=== PATIENT | male | born 1970 | race Hispanic/Latino ===

== ENCOUNTER 2018-07-01 15:55 | Inpatient (IN) | payer BC ==
[~2018-07-01] VITALS: Ht 175.3 cm; Wt 164.5 kg
--- OUTSIDE RECORDS SUMMARY | 2018-07-01 15:59 | XMS REPORT | Summary of Care ---
Author Author [facility] Organization [facility] Address Unknown Phone Unavailable Encounter ANABELL De Paz(CONSUELO) [id number] Date(s): 08/19/16 - 08/23/16 [facility] [address] [place] [address]- [phone] Final: Diverticulitis of intestine, part unspecified, without perforation or abs cess without bleeding Discharge Disposition: Home or Self Care Attending Physician: Delia Tierney MD Admitting Physician: Delia Tierney MD Vital Signs 1 2 3 Most recent to oldest [Reference Range]: 175.26 cm (08/20/16 4:33 AM) 175.26 cm (08/19/16 7:31 PM) Height 98.0 DegF (08/23/16 4:00 PM) 97.6 DegF (08/23/16 12:00 PM) 98.0 DegF (08/23/16 8:00 AM) Temperature Oral [96.4-99.1 DegF] 135/91 mmHg (08/23/16 4:00 PM) 136/89 mmHg (08/23/16 12:00 PM) 119/80 mmHg (08/23/16 8:00 AM) Blood Pressure [90-140/60-90 mmHg] 18 BRMIN (08/23/16 4:00 PM) 18 BRMIN (08/23/16 12:00 PM) 18 BRMIN (08/23/16 8:00 AM) Respiratory Rate [14-20 BRMIN] 69 bpm (08/23/16 4:00 PM) 50 bpm *LOW* (08/23/16 12:00 PM) 60 bpm (08/23/16 8:00 AM) Peripheral Pulse Rate [60-100 bpm] 159.091 kg (08/19/16 7:31 PM) Weight 51.79 m2 (08/19/16 7:31 PM) Body Mass Index Problem List Condition Effective Dates Status Health Status Informant Diverticulitis(Confi Resolved rmed) Allergies, Adverse Reactions, Alerts Substance Reaction Severity Status NKDA Active Medications amoxicillin 500 mg oral capsule 500 mg=1 cap, PO, TID, X 14 day, # 42 cap, 0 Refill(s) Start Date: 08/23/16 Stop Date: 09/06/16 Status: Ordered atropine 0.5 mg, 5 mL, Route: IVP, Drug form: INJ, ONCE, Dosing Weight 159.091, kg, PRN B radycardia, Start date: 08/20/16 6:27:00 CDT, symptomatic bradycardia HR <40 Start Date: 08/20/16 Stop Date: 08/23/16 Status: Discontinued dexamethasone (ANES) Route: IV, Drug form: INJ, ONCE, Stop date: 08/21/16 11:43:00 CDT Start Date: 08/21/16 Stop Date: 08/21/16 Status: Completed famotidine 20 mg, 2 mL, Route: IVP, Drug form: INJ, ONCE, Dosing Weight 159.091, kg, Priori ty: STAT, Start date: 08/19/16 19:40:00 CDT, Stop date: 08/19/16 19:40:00 CDT Notes: (Same as: Pepcid)Can be dilute in 5-10cc NS IVP: Slow IV push over at le ast 2 minutes. Start Date: 08/19/16 Stop Date: 08/19/16 Status: Completed fentaNYL (ANES) Route: IV, Drug form: INJ, ONCE, Stop date: 08/21/16 11:43:00 CDT Start Date: 08/21/16 Stop Date: 08/21/16 Status: Completed Flagyl 500 mg, 100 mL, Route: IVPB, Drug form: INJ, ABXQ6H, Dosing Weight 159.091, kg, Start date: 08/20/16 4:00:00 CDT, Duration: 30 day, Stop date: 09/18/16 22:00:00 CDT Notes: (Same as: Flagyl) Avoid alcohol. Start Date: 08/20/16 Stop Date: 08/20/16 Status: Discontinued Flagyl 500 mg, 1 tab, Route: PO, Drug form: TAB, ONCE, Dosing Weight 159.091, kg, Prior ity: STAT, Start date: 08/20/16 2:45:00 CDT, Stop date: 08/20/16 2:45:00 CDT Notes: (Same as: Flagyl) Take with food/ avoid alcohol Start Date: 08/20/16 Stop Date: 08/20/16 Status: Completed Flagyl 500 mg oral tablet 500 mg=1 tab, PO, Q8H, X 14 day, # 42 tab, 0 Refill(s) Start Date: 08/23/16 Stop Date: 09/06/16 Status: Ordered hydromorphone (ANES) Route: IV, Drug form: INJ, ONCE, Stop date: 08/21/16 11:43:00 CDT Start Date: 08/21/16 Stop Date: 08/21/16 Status: Completed Lactated Ringers Injection IV 1000 mL 1,000 mL, Rate: 25 ml/hr, Infuse over: 40 hr, Route: IV, Dosing Weight 159.091 k g, Total Volume: 1,000, Start date: 08/21/16 10:40:00 CDT, Duration: 30 day, Sto p date: 09/20/16 10:39:00 CDT Start Date: 08/21/16 Stop Date: 08/21/16 Status: Discontinued lidocaine (ANES) Route: IV, Drug form: INJ, ONCE, Stop date: 08/21/16 11:43:00 CDT Start Date: 08/21/16 Stop Date: 08/21/16 Status: Completed LR 1000 mL INJ (ANES) Route: IV, Total Volume: 1,000, Start date: 08/21/16 10:59:00 CDT, Stop date: 11:59:00 CDT Start Date: 08/21/16 Stop Date: 08/21/16 Status: Completed midazolam (ANES) Route: IV, Drug form: SOLN, ONCE, Stop date: 08/21/16 11:42:00 CDT Start Date: 08/21/16 Stop Date: 08/21/16 Status: Completed morphine Sulfate 4 mg, 1 mL, Route: IVP, Drug form: SOLN, ONCE, Dosing Weight 159.091, kg, Priori ty: STAT, Start date: 08/19/16 19:40:00 CDT, Stop date: 08/19/16 19:40:00 CDT Notes: (Same as:MORPhine Sulfate) Start Date: 08/19/16 Stop Date: 08/19/16 Status: Completed morphine Sulfate 4 mg, Route: IVP, ONCE, Dosing Weight 159.091, kg, Priority: STAT, Start date: 0 08/19/16 23:06:00 CDT, Stop date: 08/19/16 23:06:00 CDT Start Date: 08/19/16 Stop Date: 08/19/16 Status: Completed morphine Sulfate 4 mg, 1 mL, Route: IVP, Drug form: SOLN, Q4H, Dosing Weight 159.091, kg, PRN Lynette n Score 7-10, Start date: 08/20/16 3:26:00 CDT, Duration: 30 day, Stop date: 3:25:00 CDT Notes: (Same as:MORPhine Sulfate) Start Date: 08/20/16 Stop Date: 08/23/16 Status: Discontinued nitroglycerin 0.4 mg sublingual tablet 0.4 mg, 1 tab, Route: SL, Drug form: TAB, Q5Min, Dosing Weight 159.091, kg, PRN Chest Pain, Start date: 08/20/16 6:27:00 CDT, Duration: 30 day, Stop date: 09/19 6:26:00 CDT Notes: (Same as:Nitroquick, Nitrostat)"Do Not Crush" Sublingual tablet Start Date: 08/20/16 Stop Date: 08/23/16 Status: Discontinued ondansetron 4 mg, 2 mL, Route: IVP, Drug form: INJ, ONCE, Dosing Weight 159.091, kg, Priorit y: STAT, Start date: 08/19/16 19:40:00 CDT, Stop date: 08/19/16 19:40:00 CDT Notes: (Same as: Papito) MEDICATION WASTE Product Size: 4 mgProduct Was barbara: ___ mg Start Date: 08/19/16 Stop Date: 08/19/16 Status: Completed ondansetron 4 mg, 2 mL, Route: IVP, Drug form: INJ, Q6H, Dosing Weight 159.091, kg, PRN Naus ea & Vomiting, Start date: 08/20/16 3:26:00 CDT, Duration: 30 day, Stop date: 09/19/16 3:25:00 CDT Notes: (Same as: Papito) MEDICATION WASTE Product Size: 4 mgProduct Was barbara: ___ mg Start Date: 08/20/16 Stop Date: 08/23/16 Status: Discontinued ondansetron (ANES) Route: IV, Drug form: INJ, ONCE, Stop date: 08/21/16 11:43:00 CDT Start Date: 08/21/16 Stop Date: 08/21/16 Status: Completed potassium chloride 20 mEq oral tablet, extended release 40 mEq, 2 tab, Route: PO, Drug form: ERTAB, ONCE, Dosing Weight 159.091, kg, Sta rt date: 08/22/16 11:31:00 CDT, Stop date: 08/22/16 11:31:00 CDT Notes: (Same as: K-Dur 20)"Do Not Crush" With food and full glass of water Start Date: 08/22/16 Stop Date: 08/22/16 Status: Completed propofol (ANES) Route: IV, Drug form: INJ, ONCE, Stop date: 08/21/16 11:43:00 CDT Start Date: 08/21/16 Stop Date: 08/21/16 Status: Completed Protonix 40 mg, 1 tab, Route: PO, Drug form: ECTAB, Before Dinner, Dosing Weight 159.091, kg, Start date: 08/22/16 16:30:00 CDT, Duration: 30 day, Stop date: 09/20/16 16 :30:00 CDT Notes: Tablet should not be chewed or crushed.(Same as: Protonix) Start Date: 08/22/16 Stop Date: 08/23/16 Status: Discontinued Saline Flush 0.9% 10 mL, Route: IVP, Drug Form: INJ, Dosing Weight 159.091, kg, PRN, PRN Line Flus h, Start date: 08/19/16 19:40:00 CDT, Duration: 30 day, Stop date: 09/18/16 19:3 9:00 CDT Notes: preservative free. Start Date: 08/19/16 Stop Date: 08/20/16 Status: Discontinued Saline Flush 0.9% 10 ml, Route: IVP, Drug Form: INJ, Dosing Weight 159.091, kg, PRN, PRN Line Flus h, Start date: 08/20/16 3:26:00 CDT, Duration: 30 day, Stop date: 09/19/16 3:25: 00 CDT Notes: (Same as: BD Posiflush) Start Date: 08/20/16 Stop Date: 08/23/16 Status: Discontinued Sodium Chloride 0.9% (Bolus) IV 1,000 mL, 2,000 ml/hr, Infuse Over: 30 minutes, Route: IV, 1,000, Drug form: INJ , ONCE, Priority: STAT, Dosing Weight 159.091 kg, Start date: 08/19/16 19:40:00 CDT, Duration: 1 doses or times, Stop date: 08/19/16 19:40:00 CDT Start Date: 08/19/16 Stop Date: 08/19/16 Status: Completed sodium chloride 0.9% 1000 ml INJ 1,000 mL 1,000 mL, Rate: 125 ml/hr, Infuse over: 8 hr, Route: IV, Dosing Weight 159.091 k g, Total Volume: 1,000, Start date: 08/20/16 3:26:00 CDT, Duration: 30 day, Stop date: 09/19/16 3:25:00 CDT Start Date: 08/20/16 Stop Date: 08/22/16 Status: Discontinued tramadol 50 mg oral tablet 50 mg=1 tab, PO, Q6H, PRN Pain Score 4-6, X 3 day, # 12 tab, 0 Refill(s) Start Date: 08/23/16 Stop Date: 08/26/16 Status: Ordered tramadol 50 mg oral tablet 50 mg, 1 tab, Route: PO, Drug form: TAB, Q4H, Dosing Weight 159.091, kg, PRN Lynette n Score 4-6, Start date: 08/22/16 11:22:00 CDT, Duration: 30 day, Stop date: 11:21:00 CDT Notes: Not to exceed 400mg/day. (Same As: Ultram) Start Date: 08/22/16 Stop Date: 08/23/16 Status: Discontinued Tylenol 650 mg, 2 tab, Route: PO, Drug form: TAB, Q6H, Dosing Weight 159.091, kg, PRN Pa in 1-3/Temp > 100.4 F, Start date: 08/20/16 4:31:00 CDT, Duration: 30 day, Stop date: 09/19/16 4:30:00 CDT Notes: Do not exceed 4 gm/day. (Same as: Tylenol) Start Date: 08/20/16 Stop Date: 08/23/16 Status: Discontinued Tylenol with Codeine #3 oral tablet 1 tab, PO, Q4H, PRN Pain, # 42 tab, 0 Refill(s) Start Date: 08/20/16 Stop Date: 08/27/16 Status: Ordered vancomycin 125 mg, 2.5 mL, Route: PO, Drug form: SUSP, ABXQ6H, Dosing Weight 159.091, kg, S tart date: 08/20/16 4:00:00 CDT, Duration: 30 day, Stop date: 09/18/16 22:00:00 CDT Notes: TIME CRITICAL MEDICATION"DILUTE EACH DOSE WITH 30ML OF WATER OR APPLE/ORA NGE JUICE PRIOR TO ADMINISTRATION" Start Date: 08/20/16 Stop Date: 08/21/16 Status: Discontinued Vantin 200 mg oral tablet 200 mg=1 tab, PO, Q12H, X 14 day, # 28 tab, 0 Refill(s) Start Date: 08/23/16 Stop Date: 09/06/16 Status: Ordered Zofran 4 mg, Route: IVP, Drug form: INJ, ONCE, Dosing Weight 159.091, kg, Priority: STA T, Start date: 08/19/16 23:06:00 CDT, Stop date: 08/19/16 23:06:00 CDT Start Date: 08/19/16 Stop Date: 08/19/16 Status: Completed Zosyn 3.375 gm, Route: IVPB, ONCE, Dosing Weight 159.091, kg, Priority: STAT, Start da te: 08/19/16 23:06:00 CDT, Stop date: 08/19/16 23:06:00 CDT Start Date: 08/19/16 Stop Date: 08/19/16 Status: Completed Zosyn + sodium chloride 0.9% INJ 100 mL 3.375 gm, Route: IVPB, ABXQ8H, Dosing Weight 159.091, kg, CrCl >=20 ml/min infuse over 4 hours, Start date: 08/20/16 12:00:00 CDT, Duration: 30 day, Stop date: 09/19/16 4:00:00 CDT Notes: (Same as: Zosyn)Dosing based on Piperacillin component MEDICATION WA RAYMUNDO Product Size: 3375 mgProduct Wasted: ___ mg Start Date: 08/20/16 Stop Date: 08/23/16 Status: Discontinued Results ELECTROLYTES 1 2 3 Most recent to oldest [Reference Range]: 145 mEq/L (08/23/16 5:17 AM) 143 mEq/L (08/22/16 4:22 AM) 143 mEq/L (08/21/16 3:42 AM) Sodium Lvl [135-145 mEq/L] 3.7 mEq/L (08/23/16 5:17 AM) 3.3 mEq/L *LOW* (08/22/16 4:22 AM) 3.5 mEq/L (08/21/16 3:42 AM) Potassium Lvl [3.5-5.1 mEq/L] 108 mEq/L (08/23/16 5:17 AM) 108 mEq/L (08/22/16 4:22 AM) 106 mEq/L (08/21/16 3:42 AM) Chloride Lvl [95-109 mEq/L] 24 mEq/L (08/23/16 5:17 AM) 27 mEq/L (08/22/16 4:22 AM) 27 mEq/L (08/21/16 3:42 AM) CO2 [24-32 mEq/L] 16.7 mEq/L (08/23/16 5:17 AM) 11.3 mEq/L (08/22/16 4:22 AM) 13.5 mEq/L (08/21/16 3:42 AM) AGAP [10.0-20.0 mEq/L] CHEM PANEL 1 2 3 Most recent to oldest [Reference Range]: 0.82 mg/dL (08/23/16 5:17 AM) 0.71 mg/dL (08/22/16 4:22 AM) 0.80 mg/dL (08/21/16 3:42 AM) Creatinine Lvl [0.50-1.40 mg/dL] 106 mL/min/1.73m2 1 *NA* (08/23/16 5:17 AM) 113 mL/min/1.73m2 2 *NA* (08/22/16 4:22 AM) 107 mL/min/1.73m2 3 *NA* (08/21/16 3:42 AM) eGFR 11 mg/dL (08/23/16 5:17 AM) 11 mg/dL (08/22/16 4:22 AM) 10 mg/dL (08/21/16 3:42 AM) BUN [7-22 mg/dL] 12 (08/21/16 3:42 AM) 9 (08/19/16 7:50 PM) B/C Ratio [6-25] 126 mg/dL *HI* (08/23/16 5:17 AM) 155 mg/dL *HI* (08/22/16 4:22 AM) 89 mg/dL (08/21/16 3:42 AM) Glucose Lvl [70-99 mg/dL] 5.8 g/dL *LOW* (08/21/16 3:42 AM) 7.3 g/dL (08/19/16 7:50 PM) Total Protein [6.4-8.4 g/dL] 2.6 g/dL *LOW* (08/21/16 3:42 AM) 3.1 g/dL *LOW* (08/19/16 7:50 PM) Albumin Lvl [3.5-5.0 g/dL] 3.2 g/dL (08/21/16 3:42 AM) 4.2 g/dL (08/19/16 7:50 PM) Globulin [2.7-4.2 g/dL] 0.8 (08/21/16 3:42 AM) 0.7 (08/19/16 7:50 PM) A/G Ratio [0.7-1.6] 8.4 mg/dL *LOW* (08/23/16 5:17 AM) 8.7 mg/dL (08/22/16 4:22 AM) 7.9 mg/dL *LOW* (08/21/16 3:42 AM) Calcium Lvl [8.5-10.5 mg/dL] 3.9 mg/dL (08/23/16 5:17 AM) Phosphorus [2.5-4.5 mg/dL] 2.5 mg/dL *HI* (08/23/16 5:17 AM) 2.0 mg/dL (08/21/16 3:42 AM) 1.9 mg/dL (08/19/16 7:50 PM) Magnesium Lvl [1.8-2.4 mg/dL] 15 unit/L (08/21/16 3:42 AM) 18 unit/L (08/19/16 7:50 PM) ALT [0-65 unit/L] 13 unit/L (08/21/16 3:42 AM) 24 unit/L (08/19/16 7:50 PM) AST [0-37 unit/L] 71 unit/L (08/21/16 3:42 AM) 91 unit/L (08/19/16 7:50 PM) Alk Phos [39-136 unit/L] 1.2 mg/dL (08/21/16 3:42 AM) 0.3 mg/dL (08/19/16 7:50 PM) Bili Total [0.2-1.3 mg/dL] 199 unit/L (08/19/16 7:50 PM) Lipase Lvl [73-393 unit/L] 1.9 mMol/L (08/19/16 8:20 PM) Lactic Acid Lvl [0.5-2.2 mMol/L] 1Result Comment: The eGFR is calculated using the CKD-EPI formula. In most young, healthy individuals the eGFR will be >90 mL/min/1.73m2. The eGFR declines with age. An eGFR of 60-89 may be normal in some populations, particularly the elderly, for whom the CKD-EPI formula has not been extensively validated. Use of the eGFR is not recommended in the following populations: Individuals with unstable creatinine concentrations, including patients and those with serious co-morbid conditions. Patients with extremes in muscle mass or diet. The data above are obtained from the National Kidney Disease Education Program ( NKDEP) which additionally recommends that when the eGFR is used in patients with extremes of body mass index for purposes of drug dosing, the eGFR should be mul tiplied by the estimated BMI. 2Result Comment: The eGFR is calculated using the CKD-EPI formula. In most young, healthy individuals the eGFR will be >90 mL/min/1.73m2. The eGFR declines with age. An eGFR of 60-89 may be normal in some populations, particularly the elderly, for whom the CKD-EPI formula has not been extensively validated. Use of the eGFR is not recommended in the following populations: Individuals with unstable creatinine concentrations, including patients and those with serious co-morbid conditions. Patients with extremes in muscle mass or diet. The data above are obtained from the National Kidney Disease Education Program ( NKDEP) which additionally recommends that when the eGFR is used in patients with extremes of body mass index for purposes of drug dosing, the eGFR should be mul tiplied by the estimated BMI. 3Result Comment: The eGFR is calculated using the CKD-EPI formula. In most young, healthy individuals the eGFR will be >90 mL/min/1.73m2. The eGFR declines with age. An eGFR of 60-89 may be normal in some populations, particularly the elderly, for whom the CKD-EPI formula has not been extensively validated. Use of the eGFR is not recommended in the following populations: Individuals with unstable creatinine concentrations, including patients and those with serious co-morbid conditions. Patients with extremes in muscle mass or diet. The data above are obtained from the National Kidney Disease Education Program ( NKDEP) which additionally recommends that when the eGFR is used in patients with extremes of body mass index for purposes of drug dosing, the eGFR should be mul tiplied by the estimated BMI. URINE AND STOOL 1 2 3 Most recent to oldest [Reference Range]: Clear (08/19/16 8:41 PM) UA Turbidity [Clear] Ltyellow *NA* (08/19/16 8:41 PM) UA Color 6.0 (08/19/16 8:41 PM) UA pH [5.0-8.0] 1.010 (08/19/16 8:41 PM) UA Spec Grav [<=1.030] Negative mg/dL *NA* (08/19/16 8:41 PM) UA Glucose [Negative mg/dL] Large *ABN* (08/19/16 8:41 PM) UA Blood [Negative] Negative mg/dL *NA* (08/19/16 8:41 PM) UA Ketones [Negative mg/dL] Negative mg/dL (08/19/16 8:41 PM) UA Protein [Negative mg/dL] <=1.0 mg/dL *NA* (08/19/16 8:41 PM) UA Urobilinogen [0.1-1.0 mg/dL] Negative *NA* (08/19/16 8:41 PM) UA Bili [Negative] Small *ABN* (08/19/16 8:41 PM) UA Leuk Est [Negative] Negative (08/19/16 8:41 PM) UA Nitrite [Negative] 17 /HPF *HI* (08/19/16 8:41 PM) UA WBC [0-5 /HPF] 57 /HPF *HI* (08/19/16 8:41 PM) UA RBC [0-2 /HPF] Occasional /HPF *NA* (08/19/16 8:41 PM) UA Bacteria [None Seen /HPF] None Seen *NA* (08/19/16 8:41 PM) UA Sq Epi Occasional /HPF *NA* (08/19/16 8:41 PM) UA Amorph Natalie [None Seen /HPF] Few /LPF *NA* (08/19/16 8:41 PM) UA Mucus [None Seen /LPF] HEMATOLOGY 1 2 3 Most recent to oldest [Reference Range]: 13.6 K/CMM *HI* (08/23/16 5:17 AM) 15.8 K/CMM *HI* (08/22/16 4:22 AM) 13.7 K/CMM *HI* (08/21/16 3:42 AM) WBC [3.7-10.4 K/CMM] 4.36 M/CMM *LOW* (08/23/16 5:17 AM) 4.42 M/CMM *LOW* (08/22/16 4:22 AM) 3.95 M/CMM *LOW* (08/21/16 3:42 AM) RBC [4.70-6.10 M/CMM] 12.7 g/dL *LOW* (08/23/16 5:17 AM) 12.8 g/dL *LOW* (08/22/16 4:22 AM) 11.4 g/dL *LOW* (08/21/16 3:42 AM) Hgb [14.0-18.0 g/dL] 37.8 % *LOW* (08/23/16 5:17 AM) 38.8 % *LOW* (08/22/16 4:22 AM) 34.3 % *LOW* (08/21/16 3:42 AM) Hct [42.0-54.0 %] 86.8 fL (08/23/16:17 AM) 87.8 fL (08/22/16 4:22 AM) 86.7 fL (08/21/16 3:42 AM) MCV [80.0-94.0 fL] 29.1 pg (08/23/16:17 AM) 29.0 pg (08/22/16 4:22 AM) 28.9 pg (08/21/16 3:42 AM) MCH [27.0-31.0 pg] 33.5 g/dL (08/23/16:17 AM) 33.0 g/dL (08/22/16 4:22 AM) 33.3 g/dL (08/21/16 3:42 AM) MCHC [32.0-36.0 g/dL] 13.5 % (08/23/16 5:17 AM) 13.6 % (08/22/16 4:22 AM) 13.5 % (08/21/16 3:42 AM) RDW [11.5-14.5 %] 396 K/CMM (08/23/16:17 AM) 364 K/CMM (08/22/16 4:22 AM) 340 K/CMM (08/21/16 3:42 AM) Platelet [133-450 K/CMM] 8.0 fL (08/23/16:17 AM) 8.0 fL (08/22/16 4:22 AM) 7.8 fL (08/21/16 3:42 AM) MPV [7.4-10.4 fL] 69.4 % (08/23/16:17 AM) 85.8 % *HI* (08/22/16 4:22 AM) 73.6 % (08/21/16 3:42 AM) Segs [45.0-75.0 %] 23.5 % (08/23/16 5:17 AM) 8.7 % *LOW* (08/22/16 4:22 AM) 16.2 % *LOW* (08/21/16 3:42 AM) Lymphocytes [20.0-40.0 %] 5.8 % (08/23/16 5:17 AM) 5.1 % (08/22/16 4:22 AM) 7.6 % (08/21/16 3:42 AM) Monocytes [2.0-12.0 %] 0.4 % (08/23/16 5:17 AM) 2.1 % (08/21/16 3:42 AM) 2.2 % (08/19/16 7:50 PM) Eosinophils [0.0-4.0 %] 0.9 % (08/23/16 5:17 AM) 0.4 % (08/22/16 4:22 AM) 0.5 % (08/21/16 3:42 AM) Basophils [0.0-1.0 %] 9.4 K/CMM *HI* (08/23/16 5:17 AM) 13.6 K/CMM *HI* (08/22/16 4:22 AM) 10.1 K/CMM *HI* (08/21/16 3:42 AM) Segs-Bands # [1.5-8.1 K/CMM] 3.2 K/CMM (08/23/16 5:17 AM) 1.4 K/CMM (08/22/16 4:22 AM) 2.2 K/CMM (08/21/16 3:42 AM) Lymphocytes # [1.0-5.5 K/CMM] 0.8 K/CMM (08/23/16 5:17 AM) 0.8 K/CMM (08/22/16 4:22 AM) 1.0 K/CMM *HI* (08/21/16 3:42 AM) Monocytes # [0.0-0.8 K/CMM] 0.1 K/CMM (08/23/16 5:17 AM) 0.3 K/CMM (08/21/16 3:42 AM) 0.4 K/CMM (08/19/16 7:50 PM) Eosinophils # [0.0-0.5 K/CMM] 0.1 K/CMM (08/23/16 5:17 AM) 0.1 K/CMM (08/22/16 4:22 AM) 0.1 K/CMM (08/21/16 3:42 AM) Basophils # [0.0-0.2 K/CMM] Immunizations No data available for this section Procedures No data available for this section Social History Social History Type Response Alcohol Current, Type Beer, Liquor. Smoking Status Current some day smoker; Type: Cigarettes; Exposure to Tobacco Smoke None; Cigarette Smoking Last 365 Days No; Reg Smoking Cessation Counseling No Assessment and Plan Extracted from: Title: [facility] Hospitalist Progress Author: Delia Tierney MD Date: 08/23/16 Note * Impression and Plan 45-year-old male, apparently he was diagnosed with acute diverticulitis, recently sent home on oral Cipro and Flagyl and symptoms persisted. ASSESSMENT Diverticulitis failed outpatient treatment UTI Prostatitis Leukocytosis 2/2 above Hypokalemia GERD PLAN: stopped Vanco continue Zosyn ID consult appreciated PRN Pain Meds Full Liquid Diet; advance as tolerated PPI Daily DVt PPx: SCDs Dispo: d/c today on Vantin/Amox/Flagyl Extracted from: Title: Urology Consult Author: Rashid Watson Date: 08/20/16 Patient: TERELL DUBON Age: 45 years Sex: Male : 1970 Associated Diagnoses: None Author: Rashid Watson MD Urology Consult Note Thank you for including us in this patient's care. Reason for Consult: Bladder thickening Basic Information Source of history: Self. Present at bedside: Medical personnel. History limitation: None. Chief Complaint 08/19/2016 19:31 Pt reports burnful urination, lower abdominal pain, and fever that started two weeks ago. Pt was admitted for diverticulitis. Pt states that the pain never went away. History of Present Illness 45 year old male with history of diverticulitis and chronic smoking who arrived to ED complaining of LLQ abdominal pain, dysuria and fevers. He states that he has noticed painful urination and urinary frequency for the last 4-5 days, developed fevers along with LLQ pain for which he came to ED. Prior to this he states that he had no voiding symptoms. He has history of kidney stones. No Family history of malignancies. Ct scan revealed thickened left bladder wall for which urology was consulted. UA significant for microscopic hematuria. Review of Systems CONSTITUTIONAL: Denies fever or chills, weight loss, fatigue. HEENT: Denies hearing loss, visual changes. CARDIOVASCULAR: Denies chest pain, palpitations. RESPIRATORY: Denies shortness of breath, cough. GASTROINTESTINAL: abdominal pain per HPI., denies diarrhea, constipation. no nausea, vomiting GENITOURINARY: As per HPI. MUSCULOSKELETAL: Denies joint pain, joint effusions, decreased range of motion SKIN: Denies recent rashes, lesions. NEUROLOGICAL: Denies seizures, numbness, tingling. ENDOCRINE: Denies excessive thirst, temperature intolerance. Health Status Allergies: Allergic Reactions (All) Severity Not Documented NKDA- No reactions were documented., Allergies (1) ActiveReaction NKDANone Documented Current medications: (Selected) Inpatient Medications Ordered Saline Flush 0.9%: 10 ml, IVP, PRN, PRN: Line Flush Tylenol: 650 mg, 2 tab, PO, Q6H, PRN: Pain 1-3/Temp > 100.4 F Zosyn + sodium chloride 0.9% INJ 100 mL: 3.375 gm, 25 ml/hr, IVPB, ABXQ8H atropine: 0.5 mg, 5 mL, IVP, ONCE, PRN: Bradycardia morphine Sulfate: 4 mg, 1 mL, IVP, Q4H, PRN: Pain Score 7-10 nitroglycerin 0.4 mg sublingual tablet: 0.4 mg, 1 tab, SL, Q5Min, PRN: Chest Pain ondansetron: 4 mg, 2 mL, IVP, Q6H, PRN: Nausea & Vomiting sodium chloride 0.9% 1000 ml INJ 1,000 mL: 125 ml/hr, IV, Stop: 09/19/16 3:25:00 CDT vancomycin: 125 mg, 2.5 mL, PO, ABXQ6H Documented Medications Documented Tylenol with Codeine #3 oral tablet: 1 tab, PO, Q4H, for 7 day, PRN: Pain, 42 tab, 0 Refill(s) Problem list: No qualifying data available Histories Past Medical History: Resolved Diverticulitis ([id number]): Resolved. Family History: Hypertension Mother Type 2 diabetes mellitus Father Procedure history: No active procedure history items have been selected or recorded. Social History Social & Psychosocial Habits Alcohol 08/03/2016 Use: Current Type: Beer, Liquor Tobacco 08/19/2016 Use: Current some day smoker Type: Cigarettes Exposure to Tobacco Smoke None Cigarette Smoking Last 365 Days No Reg Smoking Cessation Counseling No . Physical Examination VS/Measurements Vital Signs (last 24 hrs) Last Charted Temp Oral98.2 DegF (AUG 20:) Heart Rate Iulkxitkxq60 bpm (AUG 20:) Resp Rate 20 BRMIN (AUG 20:) PFW157 mmHg (AUG 20:) DBP70 mmHg (AUG 20 15:) QoJ758 % (AUG 20 11:26) Onzgxt960.09 kg (AUG 19 19:31) Qgucgb716.26 cm (AUG 20 04:33) BMI51.79 (AUG 19 19:31) General: Alert and oriented, No acute distress. Eye: Normal conjunctiva, Vision unchanged. HENT: Normal hearing, Oral mucosa is moist. Neck: Supple, Non-tender. Respiratory: Respirations are non-labored, Symmetrical chest wall expansion. No tactile fremitus Cardiovascular: Normal rate, Regular rhythm. No extremity edema, palpable peripheral pulses Gastrointestinal: Soft, tender at LLQ, no palpable hernias Genitourinary: No costovertebral angle tenderness. Musculoskeletal Normal range of motion. Normal strength, gait, and station. No clubbing/cyanosis/edema Integumentary: Warm, [place]. Neurologic: Alert, Oriented. Cognition and Speech: Oriented, Speech clear and coherent. Review / Management Results review: Labs (Last four charted values) WBC H 18.8(AUG 19) Hgb L 13.0(AUG 19) Hct L 39.1(AUG 19) Plt 429(AUG 19) Na 141(AUG 19) K L 3.4(AUG 19) CO2 26(AUG 19) Cl 106(AUG 19) Cr 0.96(AUG 19) BUN 9(AUG 19) Glucose Random H 127(AUG 19) Mg 1.9(AUG 19) Ca 8.5(AUG 19). Impression and Plan 45 year old male with findings suggestive of acute diverticulitis, possible UTI, possible bladder mass, possible colovesical fistula?. -- NPO after midnight. -- Will schedule for cystoscopy, possible bladder biopsy and fulguration tomorrow am. -- Antibiotics per primary team. Follow up on cultures. Case was evaluated and discussed with attending physician, Dr. Adorno. Addendum Patient seen and examined, agree with H&P, plan as per Dr. Contreras by -Worsening bladder thickening on CT, concern for colovesical fistula - to OR for Kyree, cystoscopy, possible bladder biopsy, cystogram. UA without nitrites, small LEs, on Shree Mancini/Michelle DUMONT on -Microhematuria - cystoscopy to evaluate 08/21/2016 I personally reveiwed the patient's labs and imaging reports, looked at the images 10:55 themselves, and contacted the consulting physician to discuss the above plan. Shree Adorno MD [facility] Office: [phone]
--- OUTSIDE RECORDS SUMMARY | 2018-07-01 15:59 | XMS REPORT | Continuity of Care Document ---
Author Author [facility] Interface Address Unknown Phone Unavailable Problems Problem Status Onset Date Classification Date Reported Comments Source ABD PAIN Active 08/19/2016 [facility] DIVERTICULITIS, CLOSTRIDIUM DIFIFICILE C Active 08/19/2016 [facility] DIVERTICULITIS Active 08/02/2016 [facility] Diverticulitis Resolved Problem 08/26/2016 [facility] Final: Diverticulitis of intestine, part unspecified, without perforation or abscess without bleeding 08/26/2016 [facility] DVTRCLI OF INTEST, PART UNSP, W/O PERF O Active [facility] ENTEROCOLITIS DUE TO CLOSTRIDIUM DIFFICI Active [facility] Medications Medication Details Route Status Patient Instructions Ordering Provider Order Date Source tramadol hydrochloride 50 MG Oral Tablet 50 mg=1 tab, PO, Q6H, PRN Pain Score 4-6, X 3 day, # 12 tab, 0 Refill(s) Active 08/23/2016 [facility] Metronidazole 500 MG Oral Tablet [Flagyl] 500 mg=1 tab, PO, Q8H, X 14 day, # 42 tab, 0 Refill(s) Active 08/23/2016 [facility] amoxicillin 500 mg oral capsule 500 mg=1 cap, PO, TID, X 14 day, # 42 cap, 0 Refill(s) Active 08/23/2016 [facility] cefpodoxime 200 MG Oral Tablet [Vantin] 200 mg=1 tab, PO, Q12H, X 14 day, # 28 tab, 0 Refill(s) Active 08/23/2016 [facility] Protonix 40 mg, 1 tab, Route: PO, Drug form: ECTAB, Before Dinner, Dosing Weight 159.091, kg, Start date: 08/22/16 16:30:00 CDT, Duration: 30 day, Stop date: 09/20/16 16:30:00 CDTNotes: Tablet should not be chewed or crushed. (Same as: Protonix) No Longer Active 08/22/2016 [facility] potassium chloride 20 mEq oral tablet, extended release 40 mEq, 2 tab, Route: PO, Drug form: ERTAB, ONCE, Dosing Weight 159.091, kg, Start date: 08/22/16 11:31:00 CDT, Stop date: 08/22/16 11:31:00 CDTNotes: (Same as: K-Dur 20) "Do Not Crush" With food and full glass of water Inactive 08/22/2016 [facility] tramadol hydrochloride 50 MG Oral Tablet 50 mg, 1 tab, Route: PO, Drug form: TAB, Q4H, Dosing Weight 159.091, kg, PRN Pain Score 4-6, Start date: 08/22/16 11:22:00 CDT, Duration: 30 day, Stop date: 09/21/16 11:21:00 CDTNotes: Not to exceed 400mg/day. (Same As: Ultram) No Longer Active 08/22/2016 [facility] hydromorphone (ANES) Route: IV, Drug form: INJ, ONCE, Stop date: 08/21/16 11:43:00 CDT Inactive 08/21/2016 [facility] propofol (ANES) Route: IV, Drug form: INJ, ONCE, Stop date: 08/21/16 11:43:00 CDT Inactive 08/21/2016 [facility] fentaNYL (ANES) Route: IV, Drug form: INJ, ONCE, Stop date: 08/21/16 11:43:00 CDT Inactive 08/21/2016 [facility] ondansetron (ANES) Route: IV, Drug form: INJ, ONCE, Stop date: 08/21/16 11:43:00 CDT Inactive 08/21/2016 [facility] lidocaine (ANES) Route: IV, Drug form: INJ, ONCE, Stop date: 08/21/16 11:43:00 CDT Inactive 08/21/2016 [facility] dexamethasone (ANES) Route: IV, Drug form: INJ, ONCE, Stop date: 08/21/16 11:43:00 CDT Inactive 08/21/2016 [facility] midazolam (ANES) Route: IV, Drug form: SOLN, ONCE, Stop date: 08/21/16 11:42:00 CDT Inactive 08/21/2016 [facility] LR 1000 mL INJ (ANES) Route: IV, Total Volume: 1,000, Start date: 08/21/16 10:59:00 CDT, Stop date: 08/21/16 11:59:00 CDT Inactive 08/21/2016 [facility] Lactated Ringers Injection IV 1000 mL 1,000 mL, Rate: 25 ml/hr, Infuse over: 40 hr, Route: IV, Dosing Weight 159.091 kg, Total Volume: 1,000, Start date: 08/21/16 10:40:00 CDT, Duration: 30 day, Stop date: 09/20/16 10:39:00 CDT Inactive 08/21/2016 [facility] Zosyn 3.375 gm, Route: IVPB, ABXQ8H, Dosing Weight 159.091, kg, CrCl >=20 ml/min infuse over 4 hours, Start date: 08/20/16 12:00:00 CDT, Duration: 30 day, Stop date: 09/19/16 4:00:00 CDTNotes: (Same as: Zosyn) Dosing based on Piperacillin component MEDICATION WASTE Product Size: 3375 mg Product Wasted: ___ mg No Longer Active 08/20/2016 [facility] Nitroglycerin 0.4 MG Sublingual Tablet 0.4 mg, 1 tab, Route: SL, Drug form: TAB, Q5Min, Dosing Weight 159.091, kg, PRN Chest Pain, Start date: 08/20/16 6:27:00 CDT, Duration: 30 day, Stop date: 09/19/16 6:26:00 CDTNotes: (Same as:Nitroquick, Nitrostat) "Do Not Crush" Sublingual tablet No Longer Active 08/20/2016 [facility] Atropine 0.5 mg, 5 mL, Route: IVP, Drug form: INJ, ONCE, Dosing Weight 159.091, kg, PRN Bradycardia, Start date: 08/20/16 6:27:00 CDT, symptomatic bradycardia HR No Longer Active 08/20/2016 [facility] Acetaminophen 300 MG / Codeine Phosphate 30 MG Oral Tablet [Tylenol with Codeine #3] 1 tab, PO, Q4H, PRN Pain, # 42 tab, 0 Refill(s) Active 08/20/2016 [facility] Tylenol 650 mg, 2 tab, Route: PO, Drug form: TAB, Q6H, Dosing Weight 159.091, kg, PRN Pain 1-3/Temp > 100.4 F, Start date: 08/20/16 4:31:00 CDT, Duration: 30 day, Stop date: 09/19/16 4:30:00 CDTNotes: Do not exceed 4 gm/day. (Same as: Tylenol) No Longer Active 08/20/2016 [facility] Flagyl 500 mg, 100 mL, Route: IVPB, Drug form: INJ, ABXQ6H, Dosing Weight 159.091, kg, Start date: 08/20/16 4:00:00 CDT, Duration: 30 day, Stop date: 09/18/16 22:00:00 CDTNotes: (Same as: Flagyl) Avoid alcohol. Inactive 08/20/2016 [facility] Vancomycin 125 mg, 2.5 mL, Route: PO, Drug form: SUSP, ABXQ6H, Dosing Weight 159.091, kg, Start date: 08/20/16 4:00:00 CDT, Duration: 30 day, Stop date: 09/18/16 22:00:00 CDTNotes: TIME CRITICAL MEDICATION "DILUTE EACH DOSE WITH 30ML OF WATER OR APPLE/ORANGE JUICE PRIOR TO ADMINISTRATION" No Longer Active 08/20/2016 [facility] Saline Flush 0.9% 10 ml, Route: IVP, Drug Form: INJ, Dosing Weight 159.091, kg, PRN, PRN Line Flush, Start date: 08/20/16 3:26:00 CDT, Duration: 30 day, Stop date: 09/19/16 3:25:00 CDTNotes: (Same as: BD Posiflush) No Longer Active 08/20/2016 [facility] Sodium Chloride 0.154 MEQ/ML Injectable Solution 1,000 mL, Rate: 125 ml/hr, Infuse over: 8 hr, Route: IV, Dosing Weight 159.091 kg, Total Volume: 1,000, Start date: 08/20/16 3:26:00 CDT, Duration: 30 day, Stop date: 09/19/16 3:25:00 CDT No Longer Active 08/20/2016 [facility] Ondansetron 4 mg, 2 mL, Route: IVP, Drug form: INJ, Q6H, Dosing Weight 159.091, kg, PRN Nausea & Vomiting, Start date: 08/20/16 3:26:00 CDT, Duration: 30 day, Stop date: 09/19/16 3:25:00 CDTNotes: (Same as: Zofran) MEDICATION WASTE Product Size: 4 mg Product Wasted: ___ mg No Longer Active 08/20/2016 [facility] Morphine 4 mg, 1 mL, Route: IVP, Drug form: SOLN, Q4H, Dosing Weight 159.091, kg, PRN Pain Score 7-10, Start date: 08/20/16 3:26:00 CDT, Duration: 30 day, Stop date: 09/19/16 3:25:00 CDTNotes: (Same as:MORPhine Sulfate) No Longer Active 08/20/2016 [facility] Flagyl 500 mg, 1 tab, Route: PO, Drug form: TAB, ONCE, Dosing Weight 159.091, kg, Priority: STAT, Start date: 08/20/16 2:45:00 CDT, Stop date: 08/20/16 2:45:00 CDTNotes: (Same as: Flagyl) Take with food/ avoid alcohol Inactive 08/20/2016 [facility] Zosyn 3.375 gm, Route: IVPB, ONCE, Dosing Weight 159.091, kg, Priority: STAT, Start date: 08/19/16 23:06:00 CDT, Stop date: 08/19/16 23:06:00 CDT Inactive 08/20/2016 [facility] Zofran 4 mg, Route: IVP, Drug form: INJ, ONCE, Dosing Weight 159.091, kg, Priority: STAT, Start date: 08/19/16 23:06:00 CDT, Stop date: 08/19/16 23:06:00 CDT Inactive 08/20/2016 [facility] Morphine 4 mg, Route: IVP, ONCE, Dosing Weight 159.091, kg, Priority: STAT, Start date: 08/19/16 23:06:00 CDT, Stop date: 08/19/16 23:06:00 CDT Inactive 08/20/2016 [facility] Ondansetron 4 mg, 2 mL, Route: IVP, Drug form: INJ, ONCE, Dosing Weight 159.091, kg, Priority: STAT, Start date: 08/19/16 19:40:00 CDT, Stop date: 08/19/16 19:40:00 CDTNotes: (Same as: Papito) MEDICATION WASTE Product Size: 4 mg Product Wasted: ___ mg Inactive 08/20/2016 [facility] Morphine 4 mg, 1 mL, Route: IVP, Drug form: SOLN, ONCE, Dosing Weight 159.091, kg, Priority: STAT, Start date: 08/19/16 19:40:00 CDT, Stop date: 08/19/16 19:40:00 CDTNotes: (Same as:MORPhine Sulfate) Inactive 08/20/2016 [facility] Famotidine 20 mg, 2 mL, Route: IVP, Drug form: INJ, ONCE, Dosing Weight 159.091, kg, Priority: STAT, Start date: 08/19/16 19:40:00 CDT, Stop date: 08/19/16 19:40:00 CDTNotes: (Same as: Pepcid) Can be dilute in 5-10cc NS IVP: Slow IV push over at least 2 minutes. Inactive 08/20/2016 [facility] Sodium Chloride 0.154 MEQ/ML Injectable Solution 1,000 mL, 2,000 ml/hr, Infuse Over: 30 minutes, Route: IV, 1,000, Drug form: INJ, ONCE, Priority: STAT, Dosing Weight 159.091 kg, Start date: 08/19/16 19:40:00 CDT, Duration: 1 doses or times, Stop date: 08/19/16 19:40:00 CDT Inactive 08/20/2016 [facility] Saline Flush 0.9% 10 mL, Route: IVP, Drug Form: INJ, Dosing Weight 159.091, kg, PRN, PRN Line Flush, Start date: 08/19/16 19:40:00 CDT, Duration: 30 day, Stop date: 09/18/16 19:39:00 CDTNotes: preservative free. No Longer Active 08/20/2016 [facility] Acetaminophen 300 MG / Codeine Phosphate 30 MG Oral Tablet [Tylenol with Codeine #3] 1 - 2 tab, PO, Q4H, PRN Pain, X 4 day, # 36 tab, 0 Refill(s) Active 08/06/2016 [facility] Metronidazole 500 MG Oral Tablet 500 mg=1 tab, PO, ABXQ8H, X 10 day, # 30 tab, 0 Refill(s) Active 08/06/2016 [facility] ciprofloxacin 500 mg oral tablet 500 mg=1 tab, PO, [id number], X 10 day, # 20 tab, 0 Refill(s) Active 08/06/2016 [facility] Flagyl 500 mg, 1 tab, Route: PO, Drug form: TAB, ABXQ8H, Dosing Weight 161.364, kg, Start date: 08/04/16 8:00:00 PHOTO LAB MANAGER, Duration: 30 day, Stop date: 09/03/16 0:00:00 CDTNotes: (Same as: Flagyl) Take with food/ avoid alcohol No Longer Active 08/04/2016 [facility] Ciprofloxacin 500 mg, 1 tab, Route: PO, Drug form: TAB, [id number], Dosing Weight 161.364, kg, Start date: 08/04/16 8:00:00 PHOTO LAB MANAGER, Duration: 30 day, Stop date: 09/02/16 20:00:00 CDTNotes: May interfere w/enteral feedings - Take 1 hr before or 2 hrs after antacids, dairy pdt & minerals. On empty stomach. No Longer Active 08/04/2016 [facility] Nitroglycerin 0.4 MG Sublingual Tablet 0.4 mg, 1 tab, Route: SL, Drug form: TAB, Q5Min, Dosing Weight 161.364, kg, PRN as needed for chest pain, Repeat Q5 minutes for total of 3 doses, Start date: 08/03/16 5:00:00 PHOTO LAB MANAGER, Duration: 30 day, Stop date: 09/02/16 5:59:00 CDTNotes: (Same as:Nitroquick, Nitrostat) "Do Not Crush" Sublingual tablet No Longer Active 08/03/2016 [facility] Atropine 0.5 mg, 5 mL, Route: IVP, Drug form: INJ, ONCE, Dosing Weight 161.364, kg, PRN Other -See Comment, symptomatic bradycardia; HR less than 40/minute, Start date: 08/03/16 5:00:00 PHOTO LAB MANAGER No Longer Active 08/03/2016 [facility] Zosyn 3.375 gm, Route: IVPB, ABXQ8H, Dosing Weight 162.273, kg, CrCl >=20 ml/min infuse over 4 hours, Start date: 08/02/16 23:00:00 PHOTO LAB MANAGER, Duration: 30 day, Stop date: 09/01/16 16:00:00 CDTNotes: (Same as: Zosyn) Dosing based on Piperacillin component MEDICATION WASTE Product Size: 3375 mg Product Wasted: ___ mg No Longer Active 08/03/2016 [facility] Saline Flush 0.9% 10 ml, Route: IVP, Drug Form: INJ, Dosing Weight 162.273, kg, PRN, PRN Line Flush, Start date: 08/02/16 22:51:00 PHOTO LAB MANAGER, Duration: 30 day, Stop date: 09/01/16 23:50:00 CDTNotes: (Same as: BD Posiflush) No Longer Active 08/03/2016 [facility] Sodium Chloride 0.154 MEQ/ML Injectable Solution 1,000 mL, Rate: 125 ml/hr, Infuse over: 8 hr, Route: IV, Dosing Weight 162.273 kg, Total Volume: 1,000, Start date: 08/02/16 22:51:00 PHOTO LAB MANAGER, Duration: 30 day, Stop date: 09/01/16 22:50:00 CDT No Longer Active 08/03/2016 [facility] Morphine 2 mg, 1 mL, Route: IVP, Drug form: INJ, Q4H, Dosing Weight 162.273, kg, PRN Pain Score 7-10, Start date: 08/02/16 22:51:00 PHOTO LAB MANAGER, Duration: 30 day, Stop date: 09/01/16 22:50:00 CDTNotes: (Same as:MORPhine Sulfate) No Longer Active 08/03/2016 [facility] Acetaminophen 325 MG / Hydrocodone Bitartrate 5 MG Oral Tablet 2 tab, Route: PO, Drug Form: TAB, Dosing Weight 162.273, kg, Q4H, PRN Pain Score 7-10, Start date: 08/02/16 22:51:00 PHOTO LAB MANAGER, Duration: 30 day, Stop date: 09/01/16 22:50:00 CDTNotes: (Same as: Mcdowell 325/5) Do not exceed 4gm/day of acetaminophen. No Longer Active 08/03/2016 [facility] Ondansetron 4 mg, 2 mL, Route: IVP, Drug form: INJ, Q6H, Dosing Weight 162.273, kg, PRN Nausea & Vomiting, Start date: 08/02/16 22:51:00 PHOTO LAB MANAGER, Duration: 30 day, Stop date: 09/01/16 22:50:00 CDTNotes: (Same as: Zofran) MEDICATION WASTE Product Size: 4 mg Product Wasted: ___ mg No Longer Active 08/03/2016 [facility] Flagyl 500 mg, 100 mL, Route: IVPB, Drug form: INJ, ONCE, Dosing Weight 162.273, kg, Priority: STAT, Start date: 08/02/16 22:38:00 PHOTO LAB MANAGER, Stop date: 08/02/16 22:38:00 CSTNotes: (Same as: Flagyl) Avoid alcohol. Inactive 08/03/2016 [facility] Cipro 400 mg, 200 mL, Route: IVPB, Drug form: INJ, ONCE, Dosing Weight 162.273, kg, Priority: STAT, Start date: 08/02/16 22:38:00 PHOTO LAB MANAGER, Stop date: 08/02/16 22:38:00 CSTNotes: Do not refrigerate Inactive 08/03/2016 [facility] Morphine 4 mg, 1 mL, Route: IVP, Drug form: SOLN, ONCE, Dosing Weight 162.273, kg, Priority: STAT, Start date: 08/02/16 20:38:00 PHOTO LAB MANAGER, Stop date: 08/02/16 20:38:00 CSTNotes: (Same as:MORPhine Sulfate) Inactive 08/03/2016 [facility] Zofran 4 mg, 2 mL, Route: IVP, Drug form: INJ, ONCE, Dosing Weight 162.273, kg, Priority: STAT, Start date: 08/02/16 19:34:00 PHOTO LAB MANAGER, Stop date: 08/02/16 19:34:00 CSTNotes: (Same as: Zofran) MEDICATION WASTE Product Size: 4 mg Product Wasted: ___ mg Inactive 08/03/2016 [facility] Morphine 4 mg, 1 mL, Route: IVP, Drug form: SOLN, ONCE, Dosing Weight 162.273, kg, Priority: STAT, Start date: 08/02/16 19:33:00 PHOTO LAB MANAGER, Stop date: 08/02/16 19:33:00 CSTNotes: (Same as:MORPhine Sulfate) Inactive 08/03/2016 [facility] Sodium Chloride 0.154 MEQ/ML Injectable Solution 1,000 mL, 1,000 ml/hr, Infuse Over: 1 hr, Route: IV, 1,000, Drug form: INJ, ONCE, Priority: STAT, Dosing Weight 162.273 kg, Start date: 08/02/16 19:33:00 PHOTO LAB MANAGER, Duration: 1 doses or times, Stop date: 08/02/16 19:33:00 PHOTO LAB MANAGER Inactive 08/03/2016 [facility] Saline Flush 0.9% 10 mL, Route: IVP, Drug Form: INJ, Dosing Weight 162.273, kg, PRN, PRN Line Flush, Start date: 08/02/16 17:28:00 PHOTO LAB MANAGER, Duration: 30 day, Stop date: 09/01/16 18:27:00 CDTNotes: (Same as: BD Posiflush) No Longer Active 08/02/2016 [facility] Allergies, Adverse Reactions, Alerts Substance Category Reaction Severity Reaction type Status Date Reported Comments Source Immunizations Immunization Date Given Site Status Last Updated Comments Source Results Order Name Results Value Reference Range Date Interpretation Comments Source CHEM PANEL eGFR 106 mL/min/1.73m2 08/23/2016 Result Comment: The eGFR is calculated using the [...] from the National Kidney Disease Education Program (NKDEP) which additionally recommends that when the eGFR is used in patients with extremes of body mass index for purposes of drug dosing, the eGFR should be multiplied by the estimated BMI. [facility] CHEM PANEL Calcium Lvl 8.4 mg/dL 8.5 - 10.5 08/23/2016 [facility] CHEM PANEL Chloride Lvl 108 meq/L 95 - 109 08/23/2016 [facility] CHEM PANEL CO2 24 meq/L 24 - 32 08/23/2016 [facility] CHEM PANEL Creatinine Lvl 0.82 mg/dL 0.50 - 1.40 08/23/2016 [facility] CHEM PANEL Sodium Lvl 145 meq/L 135 - 145 08/23/2016 [facility] CHEM PANEL Potassium Lvl 3.7 meq/L 3.5 - 5.1 08/23/2016 [facility] CHEM PANEL Glucose Lvl 126 mg/dL 70 - 99 08/23/2016 [facility] CHEM PANEL BUN 11 mg/dL 7 - 22 08/23/2016 [facility] CHEM PANEL AGAP 16.7 meq/L 10.0 - 20.0 08/23/2016 [facility] CHEM PANEL Magnesium Lvl 2.5 mg/dL 1.8 - 2.4 08/23/2016 [facility] CHEM PANEL Phosphorus 3.9 mg/dL 2.5 - 4.5 08/23/2016 [facility] HEMATOLOGY Monocytes # 0.8 K/CMM 0.0 - 0.8 08/23/2016 [facility] HEMATOLOGY Eosinophils # 0.1 K/CMM 0.0 - 0.5 08/23/2016 [facility] HEMATOLOGY Basophils # 0.1 K/CMM 0.0 - 0.2 08/23/2016 [facility] HEMATOLOGY Segs 69.4 % 45.0 - 75.0 08/23/2016 [facility] HEMATOLOGY Lymphocytes 23.5 % 20.0 - 40.0 08/23/2016 [facility] HEMATOLOGY Segs-Bands # 9.4 K/CMM 1.5 - 8.1 08/23/2016 [facility] HEMATOLOGY Basophils 0.9 % 0.0 - 1.0 08/23/2016 [facility] HEMATOLOGY Eosinophils 0.4 % 0.0 - 4.0 08/23/2016 [facility] HEMATOLOGY Monocytes 5.8 % 2.0 - 12.0 08/23/2016 [facility] HEMATOLOGY Lymphocytes # 3.2 K/CMM 1.0 - 5.5 08/23/2016 [facility] HEMATOLOGY Hgb 12.7 g/dL 14.0 - 18.0 08/23/2016 [facility] HEMATOLOGY MCH 29.1 pg 27.0 - 31.0 08/23/2016 [facility] HEMATOLOGY Hct 37.8 % 42.0 - 54.0 08/23/2016 [facility] HEMATOLOGY MCV 86.8 fL 80.0 - 94.0 08/23/2016 [facility] HEMATOLOGY RBC 4.36 M/CMM 4.70 - 6.10 08/23/2016 [facility] WBC 13.6 K/CMM 3.7 - 10.4 08/23/2016 [facility] HEMATOLOGY Platelet 396 K/CMM 133 - 450 08/23/2016 [facility] RDW 13.5 % 11.5 - 14.5 08/23/2016 [facility] MCHC 33.5 g/dL 32.0 - 36.0 08/23/2016 [facility] HEMATOLOGY MPV 8.0 fL 7.4 - 10.4 08/23/2016 [facility] ELECTROLYTES AGAP 11.3 meq/L 10.0 - 20.0 08/22/2016 [facility] ELECTROLYTES Creatinine Lvl 0.71 mg/dL 0.50 - 1.40 08/22/2016 [facility] ELECTROLYTES Sodium Lvl 143 meq/L 135 - 145 08/22/2016 [facility] ELECTROLYTES Glucose Lvl 155 mg/dL 70 - 99 08/22/2016 [facility] ELECTROLYTES BUN 11 mg/dL 7 - 22 08/22/2016 [facility] ELECTROLYTES Potassium Lvl 3.3 meq/L 3.5 - 5.1 08/22/2016 [facility] ELECTROLYTES Calcium Lvl 8.7 mg/dL 8.5 - 10.5 08/22/2016 [facility] ELECTROLYTES Chloride Lvl 108 meq/L 95 - 109 08/22/2016 [facility] ELECTROLYTES CO2 27 meq/L 24 - 32 08/22/2016 [facility] ELECTROLYTES eGFR 113 mL/min/1.73m2 08/22/2016 Result Comment: The eGFR is calculated using the [...] from the National Kidney Disease Education Program (NKDEP) which additionally recommends that when the eGFR is used in patients with extremes of body mass index for purposes of drug dosing, the eGFR should be multiplied by the estimated BMI. [facility] WBC 15.8 K/CMM 3.7 - 10.4 08/22/2016 [facility] HEMATOLOGY Platelet 364 K/CMM 133 - 450 08/22/2016 [facility] HEMATOLOGY MPV 8.0 fL 7.4 - 10.4 08/22/2016 [facility] MCHC 33.0 g/dL 32.0 - 36.0 08/22/2016 [facility] HEMATOLOGY RDW 13.6 % 11.5 - 14.5 08/22/2016 [facility] HEMATOLOGY RBC 4.42 M/CMM 4.70 - 6.10 08/22/2016 [facility] HEMATOLOGY Hgb 12.8 g/dL 14.0 - 18.0 08/22/2016 [facility] MCH 29.0 pg 27.0 - 31.0 08/22/2016 [facility] Hct 38.8 % 42.0 - 54.0 08/22/2016 [facility] MCV 87.8 fL 80.0 - 94.0 08/22/2016 [facility] Basophils 0.4 % 0.0 - 1.0 08/22/2016 [facility] HEMATOLOGY Lymphocytes # 1.4 K/CMM 1.0 - 5.5 08/22/2016 [facility] HEMATOLOGY Segs-Bands # 13.6 K/CMM 1.5 - 8.1 08/22/2016 [facility] Monocytes # 0.8 K/CMM 0.0 - 0.8 08/22/2016 [facility] Basophils # 0.1 K/CMM 0.0 - 0.2 08/22/2016 [facility] Monocytes 5.1 % 2.0 - 12.0 08/22/2016 [facility] HEMATOLOGY Segs 85.8 % 45.0 - 75.0 08/22/2016 [facility] Lymphocytes 8.7 % 20.0 - 40.0 08/22/2016 [facility] CHEM PANEL Glucose Lvl 89 mg/dL 70 - 99 08/21/2016 [facility] CHEM PANEL B/C Ratio 12 6 - 25 08/21/2016 [facility] CHEM PANEL Total Protein 5.8 g/dL 6.4 - 8.4 08/21/2016 [facility] CHEM PANEL Albumin Lvl 2.6 g/dL 3.5 - 5.0 08/21/2016 [facility] CHEM PANEL CO2 27 meq/L 24 - 32 08/21/2016 [facility] CHEM PANEL AGAP 13.5 meq/L 10.0 - 20.0 08/21/2016 [facility] CHEM PANEL Calcium Lvl 7.9 mg/dL 8.5 - 10.5 08/21/2016 [facility] CHEM PANEL AST 13 unit/L 0 - 37 08/21/2016 [facility] CHEM PANEL Alk Phos 71 unit/L 39 - 136 08/21/2016 [facility] CHEM PANEL A/G Ratio 0.8 0.7 - 1.6 08/21/2016 [facility] CHEM PANEL ALT 15 unit/L 0 - 65 08/21/2016 [facility] CHEM PANEL Globulin 3.2 g/dL 2.7 - 4.2 08/21/2016 [facility] CHEM PANEL eGFR 107 mL/min/1.73m2 08/21/2016 Result Comment: The eGFR is calculated using the [...] from the National Kidney Disease Education Program (NKDEP) which additionally recommends that when the eGFR is used in patients with extremes of body mass index for purposes of drug dosing, the eGFR should be multiplied by the estimated BMI. [facility] CHEM PANEL Bili Total 1.2 mg/dL 0.2 - 1.3 08/21/2016 [facility] CHEM PANEL Creatinine Lvl 0.80 mg/dL 0.50 - 1.40 08/21/2016 [facility] CHEM PANEL Chloride Lvl 106 meq/L 95 - 109 08/21/2016 [facility] CHEM PANEL Potassium Lvl 3.5 meq/L 3.5 - 5.1 08/21/2016 [facility] CHEM PANEL BUN 10 mg/dL 7 - 22 08/21/2016 [facility] CHEM PANEL Sodium Lvl 143 meq/L 135 - 145 08/21/2016 [facility] CHEM PANEL Magnesium Lvl 2.0 mg/dL 1.8 - 2.4 08/21/2016 [facility] HEMATOLOGY Basophils # 0.1 K/CMM 0.0 - 0.2 08/21/2016 [facility] HEMATOLOGY Monocytes # 1.0 K/CMM 0.0 - 0.8 08/21/2016 [facility] Lymphocytes # 2.2 K/CMM 1.0 - 5.5 08/21/2016 [facility] HEMATOLOGY Eosinophils # 0.3 K/CMM 0.0 - 0.5 08/21/2016 [facility] Segs-Bands # 10.1 K/CMM 1.5 - 8.1 08/21/2016 [facility] Basophils 0.5 % 0.0 - 1.0 08/21/2016 [facility] Lymphocytes 16.2 % 20.0 - 40.0 08/21/2016 [facility] Segs 73.6 % 45.0 - 75.0 08/21/2016 [facility] Monocytes 7.6 % 2.0 - 12.0 08/21/2016 [facility] Eosinophils 2.1 % 0.0 - 4.0 08/21/2016 [facility] RDW 13.5 % 11.5 - 14.5 08/21/2016 [facility] Hgb 11.4 g/dL 14.0 - 18.0 08/21/2016 [facility] MCH 28.9 pg 27.0 - 31.0 08/21/2016 [facility] Hct 34.3 % 42.0 - 54.0 08/21/2016 [facility] MCHC 33.3 g/dL 32.0 - 36.0 08/21/2016 [facility] MCV 86.7 fL 80.0 - 94.0 08/21/2016 [facility] WBC 13.7 K/CMM 3.7 - 10.4 08/21/2016 [facility] RBC 3.95 M/CMM 4.70 - 6.10 08/21/2016 [facility] MPV 7.8 fL 7.4 - 10.4 08/21/2016 [facility] Platelet 340 K/CMM 133 - 450 08/21/2016 [facility] URINE AND STOOL UA Sq Epi None Seen 08/20/2016 [facility] URINE AND STOOL UA Urobilinogen <=1.0 mg/dL 0.1 - 1.0 08/20/2016 [facility] URINE AND STOOL UA Color Ltyellow 08/20/2016 [facility] URINE AND STOOL UA Amorph Natalie Occasional /HPF None Seen /HPF 08/20/2016 [facility] URINE AND STOOL UA Mucus Few /LPF None Seen /LPF 08/20/2016 [facility] URINE AND STOOL UA Leuk Est Small *ABN* (08/19/16 8:41 PM) Negative 08/20/2016 [facility] URINE AND STOOL UA RBC 57 /HPF 0 - 2 08/20/2016 [facility] URINE AND STOOL UA WBC 17 /HPF 0 - 5 08/20/2016 [facility] URINE AND STOOL UA Bacteria Occasional /HPF None Seen /HPF 08/20/2016 [facility] URINE AND STOOL UA Blood Large *ABN* (08/19/16 8:41 PM) Negative 08/20/2016 [facility] URINE AND STOOL UA Nitrite Negative (08/19/16 8:41 PM) Negative 08/20/2016 [facility] URINE AND STOOL UA pH 6.0 5.0 - 8.0 08/20/2016 [facility] URINE AND STOOL UA Spec Grav 1.010 <=1.030 08/20/2016 [facility] URINE AND STOOL UA Protein Negative mg/dL Negative mg/dL 08/20/2016 [facility] URINE AND STOOL UA Ketones Negative mg/dL Negative mg/dL 08/20/2016 [facility] URINE AND STOOL UA Bili Negative *NA* (08/19/16 8:41 PM) Negative 08/20/2016 [facility] URINE AND STOOL UA Turbidity Clear (08/19/16 8:41 PM) Clear 08/20/2016 [facility] URINE AND STOOL UA Glucose Negative mg/dL Negative mg/dL 08/20/2016 [facility] CHEM PANEL Lactic Acid Lvl 1.9 mMol/L 0.5 - 2.2 08/20/2016 [facility] CHEM PANEL Magnesium Lvl 1.9 mg/dL 1.8 - 2.4 08/20/2016 [facility] CHEM PANEL Lipase Lvl 199 unit/L 73 - 393 08/20/2016 [facility] CHEM PANEL AST 24 unit/L 0 - 37 08/20/2016 [facility] CHEM PANEL Bili Total 0.3 mg/dL 0.2 - 1.3 08/20/2016 [facility] CHEM PANEL Alk Phos 91 unit/L 39 - 136 08/20/2016 [facility] CHEM PANEL Albumin Lvl 3.1 g/dL 3.5 - 5.0 08/20/2016 [facility] CHEM PANEL ALT 18 unit/L 0 - 65 08/20/2016 [facility] CHEM PANEL Total Protein 7.3 g/dL 6.4 - 8.4 08/20/2016 [facility] CHEM PANEL B/C Ratio 9 6 - 25 08/20/2016 [facility] CHEM PANEL Globulin 4.2 g/dL 2.7 - 4.2 08/20/2016 [facility] CHEM PANEL A/G Ratio 0.7 0.7 - 1.6 08/20/2016 [facility] HEMATOLOGY Eosinophils # 0.4 K/CMM 0.0 - 0.5 08/20/2016 [facility] HEMATOLOGY Eosinophils 2.2 % 0.0 - 4.0 08/20/2016 [facility] ED Abdomen/Pelvis IV contrast only CT ED Abdomen/Pelvis IV contrast only CT Patient Name: TERELL DUBON : 1970; Age: 45 years y/o Male MR: [id number] Study: ED Abdomen/Pelvis IV contrast only CT 08/19/2016 7:40 PM CDT Ordering Physician: Dann Rueda Comparison: 08/05/2016 CT Radiation Dose DLP mGy-cm Clinical Indication: Abdominal pain, acute. fever, worsening diverticulitis ssx. Pt reports burnful urination, lower abdominal pain, and fever that started two weeks ago. Pt was admitted for diverticulitis. Pt states that the pain never went away. - ct dlp 2227.86 mGy-cm, 100 cc omni.; Multiple computerized axial tomograms of the abdomen and pelvis were obtained without oral or IV contrast administration. 2-D sagittal and coronal reconstruction images were obtained. Lung bases clear. Thoracic and lumbar spondylosis are noted associated with degenerative arthropathy of the lower lumbar apophyseal joints. Mild cardiomegaly. Diffuse fatty infiltration of the liver. No renal or abdominal ureteral calculi are noted. No obstructive uropathic changes are noted. The gallbladder is contracted. Nonspecific, nonenlarged retroperitoneal lymph nodes are present. There is no adenopathy, abdominal mass, free fluid or pneumoperitoneum. Mild to moderate prostate and seminal vesicle enlargement are unchanged. There is interval edematous infiltration of the dorsal perivesical fat about the prostate and seminal vesicles. Again noted is sympathetic urinary bladder wall thickening at the superior left side and dome of the urinary bladder. Segmental wall thickening with effacement of the colonic lumen is noted at the proximal sigmoid colon associated with multiple diverticula and pericolonic inflammatory change which appears decreased from the previous exam. There is interval demonstration of rectal wall thickening and perirectal fat inflammatory change with infiltration of the presacral fat. IMPRESSION: 1. Interval improvement in the appearance of the previous identified sigmoid diverticulitis. 2. Persistent sympathetic inflammatory urinary bladder wall thickening at the left side and dome of the urinary bladder. 3. Interval development of edematous infiltration of the perivesical fat about the prostate and seminal vesicles. 4. Interval development of nonspecific proctitis with perirectal edematous change. 5. Exam is otherwise unchanged from the previous study. SL: [id number] 08/19/2016 - - Read by: Mello Cotter MD Dictated Date/time: 08/19/16 23:09 Electronically Signed by: Mello Cotter MD 08/19/16 23:20 FINAL REPORT [facility] Hct 39.6 % 42.0 - 54.0 08/07/2016 [facility] WBC 10.9 K/CMM 3.7 - 10.4 08/07/2016 [facility] RBC 4.45 M/CMM 4.70 - 6.10 08/07/2016 [facility] Hgb 13.2 g/dL 14.0 - 18.0 08/07/2016 [facility] Platelet 262 K/CMM 133 - 450 08/07/2016 [facility] MPV 8.2 fL 7.4 - 10.4 08/07/2016 [facility] MCH 29.8 pg 27.0 - 31.0 08/07/2016 [facility] MCHC 33.5 g/dL 32.0 - 36.0 08/07/2016 [facility] RDW 13.6 % 11.5 - 14.5 08/07/2016 [facility] MCV 88.9 fL 80.0 - 94.0 08/07/2016 [facility] Segs 66.2 % 45.0 - 75.0 08/07/2016 [facility] Monocytes 9.6 % 2.0 - 12.0 08/07/2016 [facility] Lymphocytes 20.8 % 20.0 - 40.0 08/07/2016 [facility] Eosinophils 3.0 % 0.0 - 4.0 08/07/2016 [facility] Basophils 0.4 % 0.0 - 1.0 08/07/2016 [facility] Segs-Bands # 7.2 K/CMM 1.5 - 8.1 08/07/2016 [facility] Lymphocytes # 2.3 K/CMM 1.0 - 5.5 08/07/2016 [facility] HEMATOLOGY Monocytes # 1.0 K/CMM 0.0 - 0.8 08/07/2016 [facility] HEMATOLOGY Eosinophils # 0.3 K/CMM 0.0 - 0.5 08/07/2016 [facility] Abdomen/Pelvis w IV contrast CT Abdomen/Pelvis w IV contrast CT Patient Name: TERELL DUBON : 1970; Age: 45 years Male MR: [id number] Study: Abdomen/Pelvis w IV contrast CT 08/04/2016 9:03 PM PHOTO LAB MANAGER CLINICAL INDICATION: Abdominal pain, acute f/u diverticulitis ADDITIONAL HISTORY: None COMPARISON: CT on 08/02/2016 TECHNIQUE: Multidetector CT imaging was performed from the diaphragm through the symphysis with multiplanar reformations obtained following the administration of IV contrast. DLP: 2093.77 mGy-cm FINDINGS: Lower thorax: Clear. Hepatobiliary: Hepatic steatosis. Unremarkable gallbladder. Pancreas: No focal mass or ductal dilatation. Spleen: No splenomegaly. Adrenals: No nodules. Kidneys: No hydronephrosis or renal stones. Pelvic organs: Unremarkable prostate. Asymmetric thickening of the left superior bladder wall. Peritoneum/Retroperitoneum: No free air or free fluid. Lymph nodes: No lymphadenopathy. Vessels: Unremarkable. Bowel: Circumferential wall thickening of the mid sigmoid with surrounding inflammatory changes and trace free fluid. The degree of inflammation is unchanged since 08/02/2016. No organized fluid collection to suggest an abscess. No evidence of bowel obstruction. Underlying sigmoid diverticulosis. The appendix appears unremarkable. Bones and soft tissues: Unremarkable. IMPRESSION: Stable appearance of the sigmoid diverticulitis when compared to 08/02/2016. No change in degree of inflammation or developmental of a pelvic abscess. Stable asymmetric thickening of the left superior bladder wall likely related to reactive inflammatory changes. SL: [id number] 08/05/2016 - - Read by: Earnestine Mckinley MD Dictated Date/time: 08/05/16 18:58 Electronically Signed by: Earnestine Mckinley MD 08/05/16 19:05 FINAL REPORT [facility] CHEM PANEL Magnesium Lvl 2.6 mg/dL 1.8 - 2.4 08/03/2016 [facility] CHEM PANEL A/G Ratio 0.9 0.7 - 1.6 08/03/2016 [facility] CHEM PANEL Globulin 3.4 g/dL 2.7 - 4.2 08/03/2016 [facility] CHEM PANEL B/C Ratio 12 6 - 25 08/03/2016 [facility] CHEM PANEL AGAP 12.5 meq/L 10.0 - 20.0 08/03/2016 [facility] CHEM PANEL eGFR 105 mL/min/1.73m2 08/03/2016 Result Comment: The eGFR is calculated using the [...] from the National Kidney Disease Education Program (NKDEP) which additionally recommends that when the eGFR is used in patients with extremes of body mass index for purposes of drug dosing, the eGFR should be multiplied by the estimated BMI. [facility] CHEM PANEL Glucose Lvl 102 mg/dL 70 - 99 08/03/2016 [facility] CHEM PANEL BUN 10 mg/dL 7 - 22 08/03/2016 [facility] CHEM PANEL Creatinine Lvl 0.84 mg/dL 0.50 - 1.40 08/03/2016 [facility] CHEM PANEL Sodium Lvl 141 meq/L 135 - 145 08/03/2016 [facility] CHEM PANEL Calcium Lvl 8.1 mg/dL 8.5 - 10.5 08/03/2016 [facility] CHEM PANEL Albumin Lvl 3.0 g/dL 3.5 - 5.0 08/03/2016 [facility] CHEM PANEL CO2 24 meq/L 24 - 32 08/03/2016 [facility] CHEM PANEL Total Protein 6.4 g/dL 6.4 - 8.4 08/03/2016 [facility] CHEM PANEL Potassium Lvl 3.5 meq/L 3.5 - 5.1 08/03/2016 [facility] CHEM PANEL Chloride Lvl 108 meq/L 95 - 109 08/03/2016 [facility] CHEM PANEL Alk Phos 107 unit/L 39 - 136 08/03/2016 [facility] CHEM PANEL AST 12 unit/L 0 - 37 08/03/2016 [facility] CHEM PANEL Bili Total 0.7 mg/dL 0.2 - 1.3 08/03/2016 [facility] CHEM PANEL ALT 20 unit/L 0 - 65 08/03/2016 [facility] CHEM PANEL Phosphorus 3.6 mg/dL 2.5 - 4.5 08/03/2016 [facility] Hgb 13.4 g/dL 14.0 - 18.0 08/03/2016 [facility] Hct 40.1 % 42.0 - 54.0 08/03/2016 [facility] MCHC 33.4 g/dL 32.0 - 36.0 08/03/2016 [facility] MCV 89.0 fL 80.0 - 94.0 08/03/2016 [facility] MCH 29.7 pg 27.0 - 31.0 08/03/2016 [facility] Platelet 232 K/CMM 133 - 450 08/03/2016 [facility] MPV 8.0 fL 7.4 - 10.4 08/03/2016 [facility] RDW 14.0 % 11.5 - 14.5 08/03/2016 [facility] WBC 13.1 K/CMM 3.7 - 10.4 08/03/2016 [facility] RBC 4.51 M/CMM 4.70 - 6.10 08/03/2016 [facility] Lymphocytes 25.9 % 20.0 - 40.0 08/03/2016 [facility] Monocytes 9.0 % 2.0 - 12.0 08/03/2016 [facility] Eosinophils 3.1 % 0.0 - 4.0 08/03/2016 [facility] Segs 61.7 % 45.0 - 75.0 08/03/2016 [facility] Basophils 0.3 % 0.0 - 1.0 08/03/2016 [facility] Monocytes # 1.2 K/CMM 0.0 - 0.8 08/03/2016 [facility] Segs-Bands # 8.1 K/CMM 1.5 - 8.1 08/03/2016 [facility] Lymphocytes # 3.4 K/CMM 1.0 - 5.5 08/03/2016 [facility] Eosinophils # 0.4 K/CMM 0.0 - 0.5 08/03/2016 [facility] URINE AND STOOL UA Sq Epi None Seen 08/03/2016 [facility] URINE AND STOOL UA Protein 30 mg/dL Negative mg/dL 08/03/2016 [facility] URINE AND STOOL UA Glucose Negative mg/dL Negative mg/dL 08/03/2016 [facility] URINE AND STOOL UA Ketones Negative mg/dL Negative mg/dL 08/03/2016 [facility] URINE AND STOOL UA Bili Negative *NA* (08/02/16 6:32 PM) Negative 08/03/2016 [facility] URINE AND STOOL UA pH 7.0 5.0 - 8.0 08/03/2016 [facility] URINE AND STOOL UA RBC 50 /HPF 0 - 2 08/03/2016 [facility] URINE AND STOOL UA Mucus Few /LPF None Seen /LPF 08/03/2016 [facility] URINE AND STOOL UA Bacteria Occasional /HPF None Seen /HPF 08/03/2016 [facility] URINE AND STOOL UA Spec Grav 1.014 <=1.030 08/03/2016 [facility] URINE AND STOOL UA Color Yellow *NA* (08/02/16 6:32 PM) Yellow 08/03/2016 [facility] URINE AND STOOL UA Turbidity Clear (08/02/16 6:32 PM) Clear 08/03/2016 [facility] URINE AND STOOL UA Leuk Est Negative (08/02/16 6:32 PM) Negative 08/03/2016 [facility] URINE AND STOOL UA WBC null 0 - 5 08/03/2016 [facility] URINE AND STOOL UA Blood Large *ABN* (08/02/16 6:32 PM) Negative 08/03/2016 [facility] URINE AND STOOL UA Urobilinogen 4.0 mg/dL 0.1 - 1.0 08/03/2016 [facility] URINE AND STOOL UA Nitrite Negative (08/02/16 6:32 PM) Negative 08/03/2016 [facility] CHEM PANEL eGFR 104 mL/min/1.73m2 08/03/2016 Result Comment: The eGFR is calculated using the [...] from the National Kidney Disease Education Program (NKDEP) which additionally recommends that when the eGFR is used in patients with extremes of body mass index for purposes of drug dosing, the eGFR should be multiplied by the estimated BMI. [facility] CHEM PANEL Bili Total 0.7 mg/dL 0.2 - 1.3 08/03/2016 [facility] CHEM PANEL Alk Phos 123 unit/L 39 - 136 08/03/2016 [facility] CHEM PANEL AST 11 unit/L 0 - 37 08/03/2016 [facility] CHEM PANEL ALT 22 unit/L 0 - 65 08/03/2016 [facility] CHEM PANEL Albumin Lvl 3.5 g/dL 3.5 - 5.0 08/03/2016 [facility] CHEM PANEL Total Protein 7.3 g/dL 6.4 - 8.4 08/03/2016 [facility] CHEM PANEL Calcium Lvl 8.6 mg/dL 8.5 - 10.5 08/03/2016 [facility] CHEM PANEL CO2 29 meq/L 24 - 32 08/03/2016 [facility] CHEM PANEL Chloride Lvl 102 meq/L 95 - 109 08/03/2016 [facility] CHEM PANEL Potassium Lvl 3.5 meq/L 3.5 - 5.1 08/03/2016 [facility] CHEM PANEL Sodium Lvl 139 meq/L 135 - 145 08/03/2016 [facility] CHEM PANEL Creatinine Lvl 0.87 mg/dL 0.50 - 1.40 08/03/2016 [facility] CHEM PANEL BUN 11 mg/dL 7 - 22 08/03/2016 [facility] CHEM PANEL Glucose Lvl 136 mg/dL 70 - 99 08/03/2016 [facility] CHEM PANEL A/G Ratio 0.9 0.7 - 1.6 08/03/2016 [facility] CHEM PANEL Globulin 3.8 g/dL 2.7 - 4.2 08/03/2016 [facility] CHEM PANEL B/C Ratio 13 6 - 25 08/03/2016 [facility] CHEM PANEL AGAP 11.5 meq/L 10.0 - 20.0 08/03/2016 [facility] CHEM PANEL Magnesium Lvl 2.2 mg/dL 1.8 - 2.4 08/03/2016 [facility] CHEM PANEL Lipase Lvl 149 unit/L 73 - 393 08/03/2016 [facility] HEMATOLOGY MCV 88.3 fL 80.0 - 94.0 08/03/2016 [facility] HEMATOLOGY Hct 42.6 % 42.0 - 54.0 08/03/2016 [facility] HEMATOLOGY Hgb 14.5 g/dL 14.0 - 18.0 08/03/2016 [facility] RDW 14.1 % 11.5 - 14.5 08/03/2016 [facility] MPV 8.0 fL 7.4 - 10.4 08/03/2016 [facility] Platelet 255 K/CMM 133 - 450 08/03/2016 [facility] MCHC 34.0 g/dL 32.0 - 36.0 08/03/2016 [facility] MCH 30.0 pg 27.0 - 31.0 08/03/2016 [facility] RBC 4.82 M/CMM 4.70 - 6.10 08/03/2016 [facility] WBC 15.1 K/CMM 3.7 - 10.4 08/03/2016 [facility] Eosinophils # 0.3 K/CMM 0.0 - 0.5 08/03/2016 [facility] Basophils # 0.1 K/CMM 0.0 - 0.2 08/03/2016 [facility] Monocytes # 1.4 K/CMM 0.0 - 0.8 08/03/2016 [facility] Basophils 0.8 % 0.0 - 1.0 08/03/2016 [facility] Segs-Bands # 9.9 K/CMM 1.5 - 8.1 08/03/2016 [facility] Lymphocytes # 3.4 K/CMM 1.0 - 5.5 08/03/2016 [facility] Segs 65.7 % 45.0 - 75.0 08/03/2016 [facility] Lymphocytes 22.2 % 20.0 - 40.0 08/03/2016 [facility] Monocytes 9.2 % 2.0 - 12.0 08/03/2016 [facility] Eosinophils 2.1 % 0.0 - 4.0 08/03/2016 [facility] ED Abdomen/Pelvis IV contrast only CT ED Abdomen/Pelvis IV contrast only CT EXAM: CT ABDOMEN AND PELVIS WITH CONTRAST DATE: 08/02/2016 5:28 PM PHOTO LAB MANAGER INDICATION: Abdominal pain, acute. COMPARISON: None. TECHNIQUE: Helical CT imaging of the abdomen and pelvis performed from lung bases through the lesser trochanters following the administration of intravenous contrast. Axial, sagittal and coronal multiplanar reconstructions provided. IV contrast: [address] Radiation Dose: KZM=1834.60 mGy-cm FINDINGS: LOWER CHEST: The lung bases are clear of focal consolidation, pleural effusions, and pneumothorax. The heart is unremarkable without evidence for a pericardial effusion. LIVER: Diffuse fatty infiltration of the liver is identified. GALLBLADDER/BILIARY: Unremarkable. PANCREAS: Unremarkable SPLEEN: Unremarkable ADRENALS: Unremarkable KIDNEYS AND URETERS: Unremarkable BLADDER: Left anterolateral bladder wall thickening is visualized on series 2 image 104. STOMACH: Unremarkable. BOWEL: The small bowel is normal in course and caliber without focal wall thickening or evidence for obstruction. There is moderate wall thickening of the sigmoid colon with a background of diverticulosis. Inflammatory stranding within the colonic mesocolon is visualized. APPENDIX: The appendix is visualized and unremarkable. PELVIS: No pelvic masses are identified. PERITONEUM: A mild amount of free fluid is noted within the pelvis. No organizing fluid collections are present. LYMPH NODES: Unremarkable. VASCULAR: Unremarkable. OSSEOUS STRUCTURES: Degenerative changes are present within the thoracolumbar spine. SOFT TISSUES: Unremarkable IMPRESSION: 1. Acute diverticulitis of the sigmoid colon with moderate surrounding inflammatory stranding. Mild amount of free fluid is noted within the pelvis without evidence for organizing pelvic fluid collections. 2. Asymmetric reactive left anterolateral bladder wall thickening, which places the patient at increased risk for development of a colovesical fistula. No definite pockets of air are noted within the bladder at this time. 3. Diffuse fatty infiltration of the liver. SL: [id number] 08/02/2016 - - Read by: Piotr Sparks MD Dictated Date/time: 08/02/16 21:26 Electronically Signed by: Piotr Sparks MD 08/02/16 21:30 FINAL REPORT [facility] Chest 1view DX Chest 1view DX EXAM: Chest 1view DX DATE: 08/02/2016 7:40 PM PHOTO LAB MANAGER INDICATION: Chest pain COMPARISON: None. IMPRESSION: Moderately enlarged cardiac silhouette and prominent mediastinum. No focal consolidation, significant pleural effusion or pneumothorax. SL: [id number] 08/02/2016 - - Read by: Jose Alberto Weiner MD Dictated Date/time: 08/02/16 20:24 Electronically Signed by: Jose Alberto Weiner MD 08/02/16 20:26 FINAL REPORT [facility] Vital Signs Vital Sign Value Date Comments Source Heart Rate 69 08/23/2016 [facility] Temperature Oral (F) 98.0 F 08/23/2016 [facility] Respitory Rate 18 08/23/2016 [facility] Systolic (mm Hg) 135 08/23/2016 [facility] Diastolic (mm Hg) 91 08/23/2016 [facility] Systolic (mm Hg) 136 08/23/2016 [facility] Diastolic (mm Hg) 89 08/23/2016 [facility] Heart Rate 50 08/23/2016 [facility] Temperature Oral (F) 97.6 F 08/23/2016 [facility] Respitory Rate 18 08/23/2016 [facility] Respitory Rate 18 08/23/2016 [facility] Systolic (mm Hg) 119 08/23/2016 [facility] Diastolic (mm Hg) 80 08/23/2016 [facility] Heart Rate 60 08/23/2016 [facility] Temperature Oral (F) 98.0 F 08/23/2016 [facility] Height 175.26 cm 08/20/2016 [facility] Weight 159.091 08/20/2016 [facility] BMI Calculated 51.79 08/20/2016 [facility] Height 175.26 cm 08/20/2016 [facility] Respitory Rate 18 08/07/2016 [facility] Heart Rate 66 08/07/2016 [facility] Systolic (mm Hg) 132 08/07/2016 [facility] Diastolic (mm Hg) 74 08/07/2016 [facility] Temperature Oral (F) 97.9 F 08/07/2016 [facility] Temperature Oral (F) 98.5 F 08/07/2016 [facility] Heart Rate 71 08/07/2016 [facility] Respitory Rate 18 08/07/2016 [facility] Systolic (mm Hg) 113 08/07/2016 [facility] Diastolic (mm Hg) 73 08/07/2016 [facility] Respitory Rate 18 08/07/2016 [facility] Systolic (mm Hg) 114 08/07/2016 [facility] Diastolic (mm Hg) 70 08/07/2016 [facility] Heart Rate 67 08/07/2016 [facility] Temperature Oral (F) 97.9 F 08/07/2016 [facility] BMI Calculated 52.53 08/03/2016 [facility] Height 175.26 cm 08/03/2016 [facility] Weight 161.364 08/03/2016 [facility] Weight 162.273 08/02/2016 [facility] Height 175.26 cm 08/02/2016 [facility] BMI Calculated 52.83 08/02/2016 [facility] Encounters Location Location Details Encounter Type Encounter Number Reason For Visit Attending Provider ADM Date DC Date Status Source [facility] Inpatient [id number] Low Foley Jr 08/02/2016 08/07/2016 [facility] Inpatient [id number] Delia Tierney 08/20/2016 08/23/2016 [facility] Procedures Procedure Code Date Perfomer Comments Source
--- OUTSIDE RECORDS SUMMARY | 2018-07-01 15:59 | XMS REPORT | Summary of Care ---
Author Author [facility] Organization [facility] Address Unknown Phone Unavailable Encounter HQ Zandra(CONSUELO) [phone] Date(s): 08/02/16 - 08/07/16 [facility] [address] [place] [address]- [phone] Discharge Disposition: Home or Self Care Attending Physician: Low Wiggins MD Admitting Physician: Low Wiggins MD Vital Signs 1 2 3 Most recent to oldest [Reference Range]: 175.26 cm (08/03/16 12:26 AM) 175.26 cm (08/02/16 5:00 PM) Height 97.9 DegF (08/07/16 4:02 PM) 98.5 DegF (08/07/16 11:26 AM) 97.9 DegF (08/07/16 8:11 AM) Temperature Oral [96.4-99.1 DegF] 132/74 mmHg (08/07/16 4:02 PM) 113/73 mmHg (08/07/16 11:26 AM) 114/70 mmHg (08/07/16 8:11 AM) Blood Pressure [90-140/60-90 mmHg] 18 BRMIN (08/07/16 4:02 PM) 18 BRMIN (08/07/16 11:26 AM) 18 BRMIN (08/07/16 8:11 AM) Respiratory Rate [14-20 BRMIN] 66 bpm (08/07/16 4:02 PM) 71 bpm (08/07/16 11:26 AM) 67 bpm (08/07/16 8:11 AM) Peripheral Pulse Rate [60-100 bpm] 161.364 kg (08/03/16 12:26 AM) 162.273 kg (08/02/16 5:00 PM) Weight 52.53 m2 (08/03/16 12:26 AM) 52.83 m2 (08/02/16 5:00 PM) Body Mass Index Problem List Condition Effective Dates Status Health Status Informant Diverticulitis(Confi Resolved rmed) Allergies, Adverse Reactions, Alerts Substance Reaction Severity Status NKDA Active Medications acetaminophen-hydrocodone 325 mg-5 mg oral tablet 2 tab, Route: PO, Drug Form: TAB, Dosing Weight 162.273, kg, Q4H, PRN Pain Score 7-10, Start date: 08/02/16 22:51:00 [employer] PAINTER HELPER, Duration: 30 day, Stop date: 09/01/16 22:50:00 CDT Notes: (Same as: [place] 325/5) Do not exceed 4gm/day of acetaminophen. Start Date: 08/02/16 Stop Date: 08/07/16 Status: Discontinued atropine 0.5 mg, 5 mL, Route: IVP, Drug form: INJ, ONCE, Dosing Weight 161.364, kg, PRN O ther -See Comment, symptomatic bradycardia; HR less than 40/minute, Start date: 08/03/16 5:00:00 AUT[employer] PAINTER HELPER Start Date: 08/03/16 Stop Date: 08/04/16 Status: Discontinued Cipro 400 mg, 200 mL, Route: IVPB, Drug form: INJ, ONCE, Dosing Weight 162.273, kg, Pr iority: STAT, Start date: 08/02/16 22:38:00 AUT[employer] PAINTER HELPER, Stop date: 08/02/16 22:38:00 CS T Notes: Do not refrigerate Start Date: 08/02/16 Stop Date: 08/02/16 Status: Completed ciprofloxacin 500 mg, 1 tab, Route: PO, Drug form: TAB, [id number], Dosing Weight 161.364, kg, St art date: 08/04/16 8:00:00 AUT[employer] PAINTER HELPER, Duration: 30 day, Stop date: 09/02/16 20:00:00 C DT Notes: May interfere w/enteral feedings - Take 1 hr before or 2 hrs after anta cids, dairy pdt & minerals. On empty stomach. Start Date: 08/04/16 Stop Date: 08/07/16 Status: Discontinued ciprofloxacin 500 mg oral tablet 500 mg=1 tab, PO, [id number], X 10 day, # 20 tab, 0 Refill(s) Start Date: 08/06/16 Stop Date: 08/16/16 Status: Ordered Flagyl 500 mg, 1 tab, Route: PO, Drug form: TAB, ABXQ8H, Dosing Weight 161.364, kg, Sta rt date: 08/04/16 8:00:00 AUT[employer] PAINTER HELPER, Duration: 30 day, Stop date: 09/03/16 0:00:00 CDT Notes: (Same as: Flagyl) Take with food/ avoid alcohol Start Date: 08/04/16 Stop Date: 08/07/16 Status: Discontinued Flagyl 500 mg, 100 mL, Route: IVPB, Drug form: INJ, ONCE, Dosing Weight 162.273, kg, Pr iority: STAT, Start date: 08/02/16 22:38:00 AUT[employer] PAINTER HELPER, Stop date: 08/02/16 22:38:00 CS T Notes: (Same as: Flagyl) Avoid alcohol. Start Date: 08/02/16 Stop Date: 08/02/16 Status: Completed metroNIDAZOLE 500 mg oral tablet 500 mg=1 tab, PO, ABXQ8H, X 10 day, # 30 tab, 0 Refill(s) Start Date: 08/06/16 Stop Date: 08/16/16 Status: Ordered morphine Sulfate 4 mg, 1 mL, Route: IVP, Drug form: SOLN, ONCE, Dosing Weight 162.273, kg, Priori ty: STAT, Start date: 08/02/16 20:38:00 AUT[employer] PAINTER HELPER, Stop date: 08/02/16 20:38:00 AUTO PAINTER HELPER Notes: (Same as:MORPhine Sulfate) Start Date: 08/02/16 Stop Date: 08/02/16 Status: Completed morphine Sulfate 4 mg, 1 mL, Route: IVP, Drug form: SOLN, ONCE, Dosing Weight 162.273, kg, Priori ty: STAT, Start date: 08/02/16 19:33:00 AUTO PAINTER HELPER, Stop date: 08/02/16 19:33:00 AUTO PAINTER HELPER Notes: (Same as:MORPhine Sulfate) Start Date: 08/02/16 Stop Date: 08/02/16 Status: Completed morphine Sulfate 2 mg, 1 mL, Route: IVP, Drug form: INJ, Q4H, Dosing Weight 162.273, kg, PRN Pain Score 7-10, Start date: 08/02/16 22:51:00 AUT[employer] PAINTER HELPER, Duration: 30 day, Stop date: 01/10 22:50:00 CDT Notes: (Same as:MORPhine Sulfate) Start Date: 08/02/16 Stop Date: 08/07/16 Status: Discontinued nitroglycerin 0.4 mg sublingual tablet 0.4 mg, 1 tab, Route: SL, Drug form: TAB, Q5Min, Dosing Weight 161.364, kg, PRN as needed for chest pain, Repeat Q5 minutes for total of 3 doses, Start date: 5:00:00 AUT[employer] PAINTER HELPER, Duration: 30 day, Stop date: 09/02/16 5:59:00 CDT Notes: (Same as:Nitroquick, Nitrostat)"Do Not Crush" Sublingual tablet Start Date: 08/03/16 Stop Date: 08/04/16 Status: Discontinued NS (Bolus) IV 1,000 mL, 1,000 ml/hr, Infuse Over: 1 hr, Route: IV, 1,000, Drug form: INJ, ONCE , Priority: STAT, Dosing Weight 162.273 kg, Start date: 08/02/16 19:33:00 AUTO PAINTER HELPER, D uration: 1 doses or times, Stop date: 08/02/16 19:33:00 AUTO PAINTER HELPER Start Date: 08/02/16 Stop Date: 08/02/16 Status: Completed ondansetron 4 mg, 2 mL, Route: IVP, Drug form: INJ, Q6H, Dosing Weight 162.273, kg, PRN Naus ea & Vomiting, Start date: 08/02/16 22:51:00 AUT[employer] PAINTER HELPER, Duration: 30 day, Stop date: 09/01/16 22:50:00 CDT Notes: (Same as: Papito) MEDICATION WASTE Product Size: 4 mgProduct Was barbara: ___ mg Start Date: 08/02/16 Stop Date: 08/07/16 Status: Discontinued Saline Flush 0.9% 10 mL, Route: IVP, Drug Form: INJ, Dosing Weight 162.273, kg, PRN, PRN Line Flus h, Start date: 08/02/16 17:28:00 AUT[employer] PAINTER HELPER, Duration: 30 day, Stop date: 09/01/16 18:2 7:00 CDT Notes: (Same as: BD Posiflush) Start Date: 08/02/16 Stop Date: 08/03/16 Status: Discontinued Saline Flush 0.9% 10 ml, Route: IVP, Drug Form: INJ, Dosing Weight 162.273, kg, PRN, PRN Line Flus h, Start date: 08/02/16 22:51:00 AUTO PAINTER HELPER, Duration: 30 day, Stop date: 09/01/16 23:5 0:00 CDT Notes: (Same as: BD Posiflush) Start Date: 08/02/16 Stop Date: 08/07/16 Status: Discontinued sodium chloride 0.9% 1000 ml INJ 1,000 mL 1,000 mL, Rate: 125 ml/hr, Infuse over: 8 hr, Route: IV, Dosing Weight 162.273 k g, Total Volume: 1,000, Start date: 08/02/16 22:51:00 AUTO PAINTER HELPER, Duration: 30 day, Sto p date: 09/01/16 22:50:00 CDT Start Date: 08/02/16 Stop Date: 08/07/16 Status: Discontinued Tylenol with Codeine #3 oral tablet 1 - 2 tab, PO, Q4H, PRN Pain, X 4 day, # 36 tab, 0 Refill(s) Start Date: 08/06/16 Stop Date: 08/10/16 Status: Ordered Zofran 4 mg, 2 mL, Route: IVP, Drug form: INJ, ONCE, Dosing Weight 162.273, kg, Priorit y: STAT, Start date: 08/02/16 19:34:00 AUTO PAINTER HELPER, Stop date: 08/02/16 19:34:00 AUTO PAINTER HELPER Notes: (Same as: Zofran) MEDICATION WASTE Product Size: 4 mgProduct Was barbara: ___ mg Start Date: 08/02/16 Stop Date: 08/02/16 Status: Completed Zosyn + sodium chloride 0.9% INJ 100 mL 3.375 gm, Route: IVPB, ABXQ8H, Dosing Weight 162.273, kg, CrCl >=20 ml/min infuse over 4 hours, Start date: 08/02/16 23:00:00 AUTO PAINTER HELPER, Duration: 30 day, Stop date: 09/01/16 16:00:00 CDT Notes: (Same as: Zosyn)Dosing based on Piperacillin component MEDICATION WA RAYMUNDO Product Size: 3375 mgProduct Wasted: ___ mg Start Date: 08/02/16 Stop Date: 08/04/16 Status: Discontinued Results ELECTROLYTES 1 2 3 Most recent to oldest [Reference Range]: 141 mEq/L (08/03/16 5:00 AM) 139 mEq/L (08/02/16 6:23 PM) Sodium Lvl [135-145 mEq/L] 3.5 mEq/L (08/03/16 5:00 AM) 3.5 mEq/L (08/02/16 6:23 PM) Potassium Lvl [3.5-5.1 mEq/L] 108 mEq/L (08/03/16 5:00 AM) 102 mEq/L (08/02/16 6:23 PM) Chloride Lvl [95-109 mEq/L] 24 mEq/L (08/03/16 5:00 AM) 29 mEq/L (08/02/16 6:23 PM) CO2 [24-32 mEq/L] 12.5 mEq/L (08/03/16 5:00 AM) 11.5 mEq/L (08/02/16 6:23 PM) AGAP [10.0-20.0 mEq/L] CHEM PANEL 1 2 3 Most recent to oldest [Reference Range]: 0.84 mg/dL (08/03/16 5:00 AM) 0.87 mg/dL (08/02/16 6:23 PM) Creatinine Lvl [0.50-1.40 mg/dL] 105 mL/min/1.73m2 1 *NA* (08/03/16 5:00 AM) 104 mL/min/1.73m2 2 *NA* (08/02/16 6:23 PM) eGFR 10 mg/dL (08/03/16 5:00 AM) 11 mg/dL (08/02/16 6:23 PM) BUN [7-22 mg/dL] 12 (08/03/16 5:00 AM) 13 (08/02/16 6:23 PM) B/C Ratio [6-25] 102 mg/dL *HI* (08/03/16 5:00 AM) 136 mg/dL *HI* (08/02/16 6:23 PM) Glucose Lvl [70-99 mg/dL] 6.4 g/dL (08/03/16 5:00 AM) 7.3 g/dL (08/02/16 6:23 PM) Total Protein [6.4-8.4 g/dL] 3.0 g/dL *LOW* (08/03/16 5:00 AM) 3.5 g/dL (08/02/16 6:23 PM) Albumin Lvl [3.5-5.0 g/dL] 3.4 g/dL (08/03/16 5:00 AM) 3.8 g/dL (08/02/16 6:23 PM) Globulin [2.7-4.2 g/dL] 0.9 (08/03/16 5:00 AM) 0.9 (08/02/16:23 PM) A/G Ratio [0.7-1.6] 8.1 mg/dL *LOW* (08/03/16 5:00 AM) 8.6 mg/dL (08/02/16 6:23 PM) Calcium Lvl [8.5-10.5 mg/dL] 3.6 mg/dL (08/03/16 5:00 AM) Phosphorus [2.5-4.5 mg/dL] 2.6 mg/dL *HI* (08/03/16 5:00 AM) 2.2 mg/dL (08/02/16 6:23 PM) Magnesium Lvl [1.8-2.4 mg/dL] 20 unit/L (08/03/16 5:00 AM) 22 unit/L (08/02/16 6:23 PM) ALT [0-65 unit/L] 12 unit/L (08/03/16 5:00 AM) 11 unit/L (08/02/16 6:23 PM) AST [0-37 unit/L] 107 unit/L (08/03/16 5:00 AM) 123 unit/L (08/02/16 6:23 PM) Alk Phos [39-136 unit/L] 0.7 mg/dL (08/03/16 5:00 AM) 0.7 mg/dL (08/02/16 6:23 PM) Bili Total [0.2-1.3 mg/dL] 149 unit/L (3/9/17 6:23 PM) Lipase Lvl [73-393 unit/L] 1Result Comment: The eGFR is calculated using [...] Most recent to oldest [Reference Range]: Clear (08/02/16 6:32 PM) UA Turbidity [Clear] Yellow *NA* (08/02/16 6:32 PM) UA Color [Yellow] 7.0 (08/02/16 6:32 PM) UA pH [5.0-8.0] 1.014 (08/02/16 6:32 PM) UA Spec Grav [<=1.030] Negative mg/dL *NA* (08/02/16 6:32 PM) UA Glucose [Negative mg/dL] Large *ABN* (08/02/16 6:32 PM) UA Blood [Negative] Negative mg/dL *NA* (08/02/16 6:32 PM) UA Ketones [Negative mg/dL] 30 mg/dL *ABN* (08/02/16 6:32 PM) UA Protein [Negative mg/dL] 4.0 mg/dL *HI* (08/02/16 6:32 PM) UA Urobilinogen [0.1-1.0 mg/dL] Negative *NA* (08/02/16 6:32 PM) UA Bili [Negative] Negative (08/02/16 6:32 PM) UA Leuk Est [Negative] Negative (08/02/16 6:32 PM) UA Nitrite [Negative] <1 /HPF (08/02/16 6:32 PM) UA WBC [0-5 /HPF] 50 /HPF *HI* (08/02/16 6:32 PM) UA RBC [0-2 /HPF] Occasional /HPF *NA* (08/02/16 6:32 PM) UA Bacteria [None Seen /HPF] None Seen *NA* (08/02/16 6:32 PM) UA Sq Epi Few /LPF *NA* (08/02/16 6:32 PM) UA Mucus [None Seen /LPF] HEMATOLOGY 1 2 3 Most recent to oldest [Reference Range]: 10.9 K/CMM *HI* (08/07/16 5:07 AM) 13.1 K/CMM *HI* (08/03/16 5:00 AM) 15.1 K/CMM *HI* (08/02/16 6:23 PM) WBC [3.7-10.4 K/CMM] 4.45 M/CMM *LOW* (08/07/16 5:07 AM) 4.51 M/CMM *LOW* (08/03/16 5:00 AM) 4.82 M/CMM (08/02/16 6:23 PM) RBC [4.70-6.10 M/CMM] 13.2 g/dL *LOW* (08/07/16 5:07 AM) 13.4 g/dL *LOW* (08/03/16 5:00 AM) 14.5 g/dL (08/02/16 6:23 PM) Hgb [14.0-18.0 g/dL] 39.6 % *LOW* (08/07/16:07 AM) 40.1 % *LOW* (08/03/16:00 AM) 42.6 % (08/02/16:23 PM) Hct [42.0-54.0 %] 88.9 fL (08/07/16:07 AM) 89.0 fL (08/03/16:00 AM) 88.3 fL (08/02/16:23 PM) MCV [80.0-94.0 fL] 29.8 pg (08/07/16:07 AM) 29.7 pg (08/03/16:00 AM) 30.0 pg (08/02/16:23 PM) MCH [27.0-31.0 pg] 33.5 g/dL (08/07/16:07 AM) 33.4 g/dL (08/03/16:00 AM) 34.0 g/dL (08/02/16:23 PM) MCHC [32.0-36.0 g/dL] 13.6 % (08/07/16:07 AM) 14.0 % (08/03/16 5:00 AM) 14.1 % (08/02/16:23 PM) RDW [11.5-14.5 %] 262 K/CMM (08/07/16:07 AM) 232 K/CMM (08/03/16:00 AM) 255 K/CMM (08/02/16:23 PM) Platelet [133-450 K/CMM] 8.2 fL (08/07/16:07 AM) 8.0 fL (08/03/16:00 AM) 8.0 fL (08/02/16:23 PM) MPV [7.4-10.4 fL] 66.2 % (08/07/16:07 AM) 61.7 % (08/03/16:00 AM) 65.7 % (08/02/16:23 PM) Segs [45.0-75.0 %] 20.8 % (08/07/16:07 AM) 25.9 % (3/10/17 5:00 AM) 22.2 % (08/02/16 6:23 PM) Lymphocytes [20.0-40.0 %] 9.6 % (08/07/16 5:07 AM) 9.0 % (08/03/16 5:00 AM) 9.2 % (08/02/16 6:23 PM) Monocytes [2.0-12.0 %] 3.0 % (08/07/16 5:07 AM) 3.1 % (08/03/16 5:00 AM) 2.1 % (08/02/16 6:23 PM) Eosinophils [0.0-4.0 %] 0.4 % (08/07/16 5:07 AM) 0.3 % (08/03/16 5:00 AM) 0.8 % (08/02/16 6:23 PM) Basophils [0.0-1.0 %] 7.2 K/CMM (08/07/16 5:07 AM) 8.1 K/CMM (08/03/16 5:00 AM) 9.9 K/CMM *HI* (08/02/16 6:23 PM) Segs-Bands # [1.5-8.1 K/CMM] 2.3 K/CMM (08/07/16 5:07 AM) 3.4 K/CMM (08/03/16 5:00 AM) 3.4 K/CMM (08/02/16 6:23 PM) Lymphocytes # [1.0-5.5 K/CMM] 1.0 K/CMM *HI* (08/07/16 5:07 AM) 1.2 K/CMM *HI* (08/03/16 5:00 AM) 1.4 K/CMM *HI* (08/02/16 6:23 PM) Monocytes # [0.0-0.8 K/CMM] 0.3 K/CMM (08/07/16 5:07 AM) 0.4 K/CMM (08/03/16 5:00 AM) 0.3 K/CMM (08/02/16 6:23 PM) Eosinophils # [0.0-0.5 K/CMM] 0.1 K/CMM (08/02/16 6:23 PM) Basophils # [0.0-0.2 K/CMM] Immunizations No data available for this section Procedures No data available for this section Social History Social History Type Response Alcohol Current, Type Beer, Liquor. Smoking Status Current every day smoker; Type: Cigarettes; Exposure to Tobacco Smoke None; Cigarette Smoking Last 365 Days No; Reg Smoking Cessation Counseling No Assessment and Plan Extracted from: Title: [facility] Author: Low Wiggins MD Date: 08/06/16 Hospitalist Progress Note [facility] Hospitalist Progress Note Attending: Low Foley Jr, MD, [facility] #[id number] Subjective: Considered discharging today. reports that he states pain has seemed to worsen with meals. Imaging explained in detail to patient and . Objective: Vitals and Temp: VitalsTmp(F)[id number] 08/06 16:[id number]--- 08/06 11:[id number]--- 08/06 08:[id number]--- 08/06 04:[id number]--- 08/05 20:[id number]--- 24 Hr Tmax: 98.5F (36.94c) at 08/06 08:00Vital Signs are the last 5 in the past 48 hours. Lines, Tubes, and Drains: 08/05/2016 20:00 Peripheral Lines: Hand Right 22 gauge Over the needle catheter PHYSICAL EXAMINATION: General: Alert, Awake, in no acute distress, obese HEENT: PERRLA, EOMI, MMM, oropharynx clear without evidence of ulceration, dentition is normal Neck: Supple, without lymphadenopathy, tracheal deviation or thyromegaly Chest: Clear to auscultation bilaterally, without adventitious sounds. Heart: Regular rate and rhythm, without auscultated murmurs, rubs or gallops Abdomen: Soft, tender to palpation of left lower quadrant of abdomen, nondistended, normal active bowel sounds Skin: Clear without evidence of rash, excoriation, suspicious lesion Psych: normal mood and affect Extremities: No clubbing cyanosis or edema Labs (Last four charted values) WBC H 13.1(AUG 03)H 15.1(AUG 02) Hgb L 13.4(AUG 03)14.5(AUG 02) Hct L 40.1(AUG 03)42.6(AUG 02) Plt 232(AUG 03)255(AUG 02) Na 141(AUG 03)139(AUG 02) K 3.5(AUG 03)3.5(AUG 02) CO2 24(AUG 03)29(AUG 02) Cl 108(AUG 03)102(AUG 02) Cr 0.84(AUG 03)0.87(AUG 02) BUN 10(AUG 03)11(AUG 02) Glucose Random H 102(AUG 03)H 136(AUG 02) Mg H 2.6(AUG 03)2.2(AUG 02) Phos 3.6(AUG 03) Ca L 8.1(AUG 03)8.6(AUG 02) Surgery Schedule: (no surgical procedures documented) Scheduled Meds (2):ciprofloxacin, metroNIDAZOLE (Flagyl) Unscheduled Meds: None PRN Meds (4):acetaminophen-hydrocodone (acetaminophen-hydrocodone 325 mg-5 mg oral tablet), morphine Sulfate, ondansetron, sodium chloride (Saline Flush 0.9%) One Time Meds: None Continuous Infusions (1):sodium chloride 0.9% 1000 ml INJ 1,000 mL ASSESSMENT AND PLAN: Acute sigmoid diverticulitis Morbid obesity Patient continues to improve to tolerate oral nutrition will change to cipro and Flagyl. I have consulted astroenterology who has further consulted colorectal surgery. Continue regular diet. The patient has been counseled to increase his physical activity and decrease caloric intake. DVT prophylaxis. Patient was encouraged to ambulate. DISPO. I anticipate discharging patient home tomorrow. [facility] Hospitalist Service is primary. Call [phone] with questions.
[2018-07-01] MEDS ORDERED: KETOROLAC TROMETHAMINE 30 MG/ML VIAL IV STA (17:18)
[2018-07-01] MEDS ORDERED: DICYCLOMINE HCL 20 MG/2 ML VIAL IM ONE ×2 (17:23→17:30)
[2018-07-01] MEDS ORDERED: DIATRIZOATE MEGL/DIATRIZOA SOD 30 ML BTL PO ONE (17:24)
[2018-07-01] MEDS ORDERED: SODIUM CHLORIDE 0.9% 1000ML 1,000 ML IV ONE (17:30)
[2018-07-01] MEDS ORDERED: ONDANSETRON HCL INJ 2MG/ML 2ML 2 MG/ML VIAL IV STA (17:44)
[2018-07-01 18:03] LABS: BASOPHILS # (AUTO) 0.1 (0.0-0.1); BASOPHILS % 0.4 % (0.0-1.0); EOSINOPHILS # (AUTO) 0.2 (0.0-0.4); EOSINOPHILS % 1.3 % (0.0-6.0); HEMATOCRIT 45.3 % (38.2-49.6); HEMOGLOBIN 14.8 g/dL (14.0-18.0); LYMPHOCYTES # (AUTO) 2.3 (1.0-3.2); LYMPHOCYTES % 13.8 % (18.0-39.1); MEAN CORPUSCULAR HEMOGLOBIN 29.6 pg (28-32); MEAN CORPUSCULAR HGB CONC 32.7 g/dL (31-35); MEAN CORPUSCULAR VOLUME 90.6 fL (81-99); MONOCYTES # (AUTO) 1.1 (0.2-0.8); MONOCYTES % 6.8 % (4.4-11.3); NEUTROPHILS # (AUTO) 12.6 (2.1-6.9); NEUTROPHILS % 77.3 % (38.7-80.0); PLATELET COUNT 286 x10e3/uL (140-360); RED CELL DISTRIBUTION WIDTH 13.8 % (11.7-14.4)
[2018-07-01 18:14] LABS: ALANINE AMINOTRANSFERASE 17 IU/L (0-55); ALBUMIN 3.6 g/dL (3.5-5.0); ALBUMIN/GLOBULIN RATIO 1.1 (0.8-2.0); ALKALINE PHOSPHATASE 102 IU/L (40-150); ANION GAP 15.2 mmol/L (8-16); BLOOD UREA NITROGEN 13 mg/dL (7-26); BUN/CREATININE RATIO 14 (6-25); CALCIUM 8.9 mg/dL (8.4-10.2); CARBON DIOXIDE 24 mmol/L (22-29); CHLORIDE 103 mmol/L (98-107); EST GLOMERULAR FILTRATION RATE > 60 ML/MIN (60-); GLUCOSE 123 mg/dL (74-118); LIPASE 44 U/L (8-78); POTASSIUM 3.2 mmol/L (3.5-5.1); SODIUM 139 mmol/L (136-145)
--- NOTE | 2018-07-01 18:40 | NUR ---
BACK FROM CT
--- NOTE | 2018-07-01 18:50 | NUR ---
ENDORSED TO NIGHT JASPAL RINCON
--- NOTE | 2018-07-01 18:58 | Diagnostic Imaging Report ---
ADDENDUM #1 EXAM: CT Abdomen and Pelvis WITH contrast INDICATION: Abdominal pain. Nausea. Diarrhea. COMPARISON: None. TECHNIQUE: Abdomen and pelvis were scanned utilizing a multidetector helical scanner from the lung base to the pubic symphysis after administration of IV contrast. Coronal and sagittal reformations were obtained. Routine protocol was performed. Scan was performed when during portal venous phase. IV CONTRAST: 100 mL of Isovue-370 ORAL CONTRAST: Gastrografin RADIATION DOSE: Total DLP: 760.32 mGy*cm Estimated effective dose: (DLP x 0.015 x size factor) mSv All CT scans are performed using radiation dose reduction techniques. Technical factors are evaluated and adjusted to ensure appropriate moderation of exposure. Automated dose management technology is applied to adjust the radiation dose to minimize exposure while achieving a diagnostic-quality image. COMPLICATIONS: None FINDINGS: LINES and TUBES: None. LOWER THORAX: Unremarkable HEPATOBILIARY: No focal hepatic lesions. No biliary ductal dilation. GALLBLADDER: No radio-opaque stones or sludge. No wall thickening. SPLEEN: No splenomegaly. PANCREAS: No focal masses or ductal dilatation. ADRENALS: No adrenal nodules KIDNEYS/URETERS: Kidneys enhance symmetrically. No hydronephrosis. No cystic or solid mass lesions. No stones. GI TRACT: There is marked sigmoid diverticulitis with marked inflammatory change in the region which appears to involve the lateral margin of the urinary bladder. No definite evidence of perforation or abscess. No bowel obstruction. Appendix is normal. PELVIC ORGANS/BLADDER: Unremarkable. LYMPH NODES: No lymphadenopathy. VESSELS: Unremarkable. PERITONEUM / RETROPERITONEUM: No free air or fluid. BONES: Scattered degenerative change. SOFT TISSUES: Unremarkable. IMPRESSION: Marked sigmoid diverticulitis with marked inflammatory change in the region which appears to involve the lateral margin of the urinary bladder. No definite evidence of perforation or abscess. No bowel obstruction. Appendix is normal. Signed by: Dr. Yaw Torres M.D. on 07/01/2018 8:33 PM ORIGINAL REPORT EXAM: CT Abdomen and Pelvis WITH contrast INDICATION: Abdominal pain. Nausea. Diarrhea. COMPARISON: None. TECHNIQUE: Abdomen and pelvis were scanned utilizing a multidetector helical scanner from the lung base to the pubic symphysis after administration of IV contrast. Coronal and sagittal reformations were obtained. Routine protocol was performed. Scan was performed when during portal venous phase. IV CONTRAST: 100 mL of Isovue-370 ORAL CONTRAST: Gastrografin RADIATION DOSE: Total DLP: 760.32 mGy*cm Estimated effective dose: (DLP x 0.015 x size factor) mSv All CT scans are performed using radiation dose reduction techniques. Technical factors are evaluated and adjusted to ensure appropriate moderation of exposure. Automated dose management technology is applied to adjust the radiation dose to minimize exposure while achieving a diagnostic-quality image. COMPLICATIONS: None FINDINGS: LINES and TUBES: None. LOWER THORAX: Unremarkable HEPATOBILIARY: No focal hepatic lesions. No biliary ductal dilation. GALLBLADDER: No radio-opaque stones or sludge. No wall thickening. SPLEEN: No splenomegaly. PANCREAS: No focal masses or ductal dilatation. ADRENALS: No adrenal nodules KIDNEYS/URETERS: Kidneys enhance symmetrically. No hydronephrosis. No cystic or solid mass lesions. No stones. GI TRACT: There is marked sigmoid diverticulitis with marked inflammatory change in the region which appears to involve the lateral margin of the urinary bladder. Definite evidence of perforation or abscess. No bowel obstruction. PELVIC ORGANS/BLADDER: Unremarkable. LYMPH NODES: No lymphadenopathy. VESSELS: Unremarkable. PERITONEUM / RETROPERITONEUM: No free air or fluid. BONES: Scattered degenerative change. SOFT TISSUES: Unremarkable. IMPRESSION: Marked sigmoid diverticulitis with marked inflammatory change in the region which appears to involve the lateral margin of the urinary bladder. Definite evidence of perforation or abscess. No bowel obstruction. Signed by: Dr. Yaw Torres M.D. on 07/01/2018 6:54 PM
[2018-07-01] MEDS: ERTAPENEM 1GM/NS 100ML 100 ML IV SCH (19:30)
[2018-07-01 19:55] LABS: CLARITY,URINE CLEAR (CLEAR); COLOR,URINE YELLOW (YELLOW)
[2018-07-01 19:56] LABS: BILIRUBIN,URINE NEGATIVE (NEGATIVE); KETONES,URINE NEGATIVE (NEGATIVE); LEUKOCYTE ESTERASE ,URINE NEGATIVE (NEGATIVE); NITRITE,URINE NEGATIVE (NEGATIVE); PROTEIN,URINE DIPSTICK TRACE (NEGATIVE); URINE UROBILINOGEN 0.2 mg/dL (0.2 - 1)
[2018-07-01 20:05] LABS: WBC,URINE (MAN) 0-5 /HPF (0-5)
[2018-07-01 20:06] LABS: BACTERIA,URINE FEW /HPF; EPITHELIAL CELLS,URINE FEW /LPF; RBC,URINE 21-50 /HPF (0-5)
--- OUTSIDE RECORDS SUMMARY | 2018-07-01 21:22 | XMS REPORT ---
[facility] Address Unknown Phone Unavailable Care Team Providers Care Advanced Practice Professional Name Role Phone Connie MEJIA Unavailable Unavailable Problems This patient has no known problems. Allergies, Adverse Reactions, Alerts This patient has no known allergies or adverse reactions. Medications This patient has no known medications. Results Test Description Test Time Test Comments Text Results Atomic Results Result Comments CT ABDOMEN/PELVIS W 2018-07-01 18:49:00 [place] [address] Patient Name: TERELL DUBON MR #: [id number] : 1970 Age/Sex: 47/M Req #: [id number] Adm Physician: Ordered by: CASEY TURPIN MD Report #: [id number] Location: ER Room/Bed: Procedure: [id number] CT/CT ABDOMEN/PELVIS W Exam Date: 07/01/18 Exam Time: 1833 REPORT STATUS: Signed ADDENDUM #1 EXAM: CT Abdomen and Pelvis WITH contrast INDICATION: Abdominal pain. Nausea. Diarrhea. COMPARISON: None. TECHNIQUE: Abdomen and pelvis were scanned utilizing a multidetector helical scanner from the lung base to the pubic symphysis after administration of IV contrast. Coronal and sagittal reformations were obtained. Routine protocol was performed. Scan was performed when during portal venous phase. IV CONTRAST: 100 mL of Isovue-370 ORAL CONTRAST: Gastrografin RADIATION DOSE: Total DLP: 760.32 mGy*cm Estimated effective dose: (DLP x 0.015 x size factor) mSv All CT scans are performed using radiation dose reduction techniques. Technical factors are evaluated and adjusted to ensure appropriate moderation of exposure. Automated dose management technology is applied to adjust the radiation dose to minimize exposure while achieving a diagnostic-quality image. COMPLICATIONS: None FINDINGS: LINES and TUBES: None. LOWER THORAX: Unremarkable HEPATOBILIARY: No focal hepatic lesions. No biliary ductal dilation. GALLBLADDER: No radio-opaque stones or sludge. No wall thickening. SPLEEN: No splenomegaly. PANCREAS: No focal masses or ductal dilatation. ADRENALS: No adrenal nodules KIDNEYS/URETERS: Kidneys enhance symmetrically. No hydronephrosis. No cystic or solid mass lesions. No stones. GI TRACT: There is marked sigmoid diverticulitis with marked inflammatory change in the region which appears to involve the lateral margin of the urinary bladder. No definite evidence of perforation or abscess. No bowel obstruction. Appendix is normal. PELVIC ORGANS/BLADDER: Unremarkable. LYMPH NODES: No lymphadenopathy. VESSELS: Unremarkable. PERITONEUM / RETROPERITONEUM: No free air or fluid. BONES: Scattered degenerative change. SOFT TISSUES: Unremarkable. IMPRESSION: Marked sigmoid diverticulitis with marked inflammatory change in the region which appears to involve the lateral margin of the urinary bladder. No definite evidence of perforation or abscess. No bowel obstruction. Appendix is normal. Signed by: Dr. Yaw Torres M.D. on 07/01/2018 8:33 PM ORIGINAL REPORT EXAM: CT Abdomen and Pelvis WITH contrast INDICATION: Abdominal pain. Nausea. Diarrhea. COMPARISON: None. TECHNIQUE: Abdomen and pelvis were scanned utilizing a multidetector helical scanner from the lung base to the pubic symphysis after administration of IV contrast. Coronal and sagittal reformations were obtained. Routine protocol was performed. Scan was performed when during portal venous phase. IV CONTRAST: 100 mL of Isovue-370 ORAL CONTRAST: Gastrografin RADIATION DOSE: Total DLP: 760.32 mGy*cm Estimated effective dose: (DLP x 0.015 x size factor) mSv All CT scans are performed using radiation dose reduction techniques. Technical factors are evaluated and adjusted to ensure appropriate moderation of exposure. Automated dose management technology is applied to adjust the radiation dose to minimize exposure while achieving a diagnostic-quality image. COMPLICATIONS: None FINDINGS: LINES and TUBES: None. LOWER THORAX: Unremarkable HEPATOBILIARY: No focal hepatic lesions. No biliary ductal dilation. GALLBLADDER: No radio-opaque stones or sludge. No wall thickening. SPLEEN: No splenomegaly. PANCREAS: No focal masses or ductal dilatation. ADRENALS: No adrenal nodules KIDNEYS/URETERS: Kidneys enhance symmetrically. No hydronephrosis. No cystic or solid mass lesions. No stones. GI TRACT: There is marked sigmoid diverticulitis with marked inflammatory change in the region which appears to involve the lateral margin of the urinary bladder. Definite evidence of perforation or abscess. No bowel obstruction. PELVIC ORGANS/BLADDER: Unremarkable. LYMPH NODES: No lymphadenopathy. VESSELS: Unremarkable. PERITONEUM / RETROPERITONEUM: No free air or fluid. BONES: Scattered degenerative change. SOFT TISSUES: Unremarkable. IMPRESSION: Marked sigmoid diverticulitis with marked inflammatory change in the region which appears to involve the lateral margin of the urinary bladder. Definite evidence of perforation or abscess. No bowel obstruction. Signed by: Dr. Yaw Torres M.D. on 07/01/2018 6:54 PM Dictated By: YAW TORRES MD, MD 32 Transcribed By: TALON on 07/01/18 1852 COPY TO: CASEY TURPIN MD
[2018-07-01] MEDS ORDERED: LEVOFLOXACIN 500MG/D5W 100ML IV SCH (21:30)
[2018-07-01] MEDS: D5.45%NS/KCL 20MEQ 1,000 ML IV SCH (21:46)
[2018-07-01] MEDS: LEVOFLOXACIN 750MG/D5W 150ML IV SCH (21:47)
[2018-07-01] MEDS ORDERED: IOPAMIDOL 370 MG/ML 200 ML INFUS..BTL INJ ONE (22:40)
[2018-07-01] MEDS ORDERED: SODIUM CHLORIDE 0.9% 50ML 50 ML ONE (22:40)
[2018-07-01] MEDS: ONDANSETRON HCL INJ 2MG/ML 2ML 2 MG/ML VIAL IV PRN (23:50)
[2018-07-01] MEDS: HYDROMORPHONE 2MG/ML 2 MG/ML ML IV PRN (23:50)
[2018-07-02] MEDS: ACETAMINOPHEN 1000 MG/100 ML IV PRN ×2 (00:01→08:40)
[2018-07-02] MEDS: METRONIDAZOLE 500MG/NS 100ML 100 ML IV SCH ×4 (00:37→17:37)
[2018-07-02] MEDS: HYDROMORPHONE 2MG/ML 2 MG/ML ML IV PRN ×4 (05:50→20:13)
[2018-07-02] MEDS: ONDANSETRON HCL INJ 2MG/ML 2ML 2 MG/ML VIAL IV PRN (05:50)
[2018-07-02 05:57] LABS: BASOPHILS % 0.3 % (0.0-1.0); EOSINOPHILS # (AUTO) 0.3 (0.0-0.4); HEMATOCRIT 39.9 % (38.2-49.6); HEMOGLOBIN 13.2 g/dL (14.0-18.0); LYMPHOCYTES # (AUTO) 2.4 (1.0-3.2); LYMPHOCYTES % 17.7 % (18.0-39.1); MEAN CORPUSCULAR HEMOGLOBIN 29.9 pg (28-32); MEAN CORPUSCULAR HGB CONC 33.1 g/dL (31-35); MEAN CORPUSCULAR VOLUME 90.3 fL (81-99); MONOCYTES # (AUTO) 1.4 (0.2-0.8); MONOCYTES % 10.6 % (4.4-11.3); NEUTROPHILS # (AUTO) 9.2 (2.1-6.9); NEUTROPHILS % 68.9 % (38.7-80.0); PLATELET COUNT 224 x10e3/uL (140-360); RED BLOOD COUNT 4.42 x10e6/uL (4.3-5.7); RED CELL DISTRIBUTION WIDTH 13.8 % (11.7-14.4)
[2018-07-02 06:10] LABS: ANION GAP 12.4 mmol/L (8-16); BLOOD UREA NITROGEN 13 mg/dL (7-26); BUN/CREATININE RATIO 16 (6-25); CALCIUM 8.5 mg/dL (8.4-10.2); CARBON DIOXIDE 23 mmol/L (22-29); CHLORIDE 106 mmol/L (98-107); CREATININE, SERUM 0.81 mg/dL (0.72-1.25); EST GLOMERULAR FILTRATION RATE > 60 ML/MIN (60-); GLUCOSE 113 mg/dL (74-118); POTASSIUM 3.4 mmol/L (3.5-5.1); SODIUM 138 mmol/L (136-145)
[2018-07-02] MEDS ORDERED: POTASSIUM CHLORIDE 20MEQ/100ML 100 ML IV STA (06:26)
[2018-07-02] MEDS ORDERED: SODIUM CHLORIDE 0.9% 1000ML 1,000 ML IV SCH (06:30)
[2018-07-02 06:46] LABS: CHOL/HDL RATIO 4.6 (3.9-4.7)
[2018-07-02] MEDS ORDERED: SODIUM CHLORIDE 0.9% 250ML 250 ML ONE (07:06)
--- NOTE | 2018-07-02 07:14 | NUR ---
Report to JASPAL Green
--- NOTE | 2018-07-02 07:43 | History and Physical ---
PRIMARY CARE PHYSICIAN: Dr. Ty CHIEF COMPLAINT: Left lower abdominal pain. HISTORY OF PRESENT ILLNESS: This is a 47-year-old gentleman with a history of hypertension and obesity, now developing lower abdominal pain prompting a visit to the hospital. He had diarrhea for 3 days. He also had fever and no vomiting. PAST MEDICAL HISTORY: Hypertension, cigarette use, obesity. PAST SURGICAL HISTORY: None. ALLERGIES: PER ELECTRONIC MEDICAL RECORD. FAMILY AND SOCIAL HISTORY: The patient is single. One pack of cigarettes a day. MEDICATIONS: Per electronic medical record. REVIEW OF SYSTEMS: Denies any chest pain or shortness of breath. Denies any leg pain or back pain. Denies any skin rash. Denies any dizziness. PHYSICAL EXAMINATION VITAL SIGNS: Have been reviewed. GENERAL: A tired-appearing man resting in bed. HEENT: Anicteric. CARDIOVASCULAR: Normal S1 and S2. LUNGS: Moderate breath sounds. ABDOMEN: Soft, nondistended. He has tenderness in the left lower quadrant. EXTREMITIES: Trace edema. SKIN: Dry. PSYCHIATRIC: Flat affect. NEUROLOGIC: Alert and oriented x3, moving all extremities. LABS: Reviewed. MEDICATIONS: Reviewed. ASSESSMENT: This is a 47-year-old man. 1. Sepsis. 2. Acute diverticulitis in the sigmoid colon. 3. Hypokalemia. 4. Morbid obesity. 5. Cigarette use. PLAN 1. IV fluids. 2. NPO status. 3. GI and surgical consultations. 4. Replace potassium. 5. Start nicotine patch. 6. Use Pepcid and SCDs for prophylaxis. 7. Disposition: Monitor closely and follow up surgical recommendations. Job#: [id number]
[2018-07-02] MEDS: FAMOTIDINE 20 MG/2 ML VIAL IV SCH ×2 (08:41→17:36)
[2018-07-02] MEDS: NICOTINE 21 MG/EA PATCH TOP SCH (08:41)
--- NOTE | 2018-07-02 09:49 | Consultation ---
DATE OF CONSULTATION: July 02, 2018 CHIEF COMPLAINT: Abdominal pain. HISTORY OF PRESENT ILLNESS: Patient is a 47-year-old male with a 5-day history of pain in the left lower quadrant with diarrhea, subjective fever, chills, nausea, and vomiting. The patient states he had previous similar attacks in the past times 3 within the last 7 years. PAST MEDICAL HISTORY: Positive for hypertension. SURGICAL HISTORY: Unremarkable. SOCIAL HABITS: Patient smokes, but denied alcohol abuse. REVIEW OF SYSTEMS: No chest pain or shortness of breath. ALLERGIES: HE HAS NO DRUG ALLERGIES. PHYSICAL EXAMINATION VITAL SIGNS: Showed T-max of 101.7, blood pressure 130/70b with a pulse of 72. GENERAL: He is awake, alert and in moderate discomfort. HEENT: Sclerae anicteric. NECK: Supple. LUNGS: Clear. HEART: Regular rate and rhythm. ABDOMEN: Soft with some guarding and tenderness in the left lower quadrant with rebound. EXTREMITIES: No cyanosis or edema. White cell count 13, hemoglobin of 13. Creatinine is 0.8. CT scan shows severe inflammation of the sigmoid colon consistent with diverticulitis with some air in the region of the bladder. ASSESSMENT: Severe diverticulitis. PLAN: Continue IV antibiotics. N.p.o. status. Will follow the patient closely with you. Job#: [id number] UNRULY
[2018-07-02] MEDS: D5.45%NS/KCL 20MEQ 1,000 ML IV SCH (10:12)
--- NOTE | 2018-07-02 10:12 | NUR ---
Patient placed on hospital bed at this time. Will continue to monitor patient.
--- NOTE | 2018-07-02 11:33 | NUR ---
pt states he smokes 1 pack a day; pt offered assistance with smoking cessation and pt accepted
--- NOTE | 2018-07-02 12:47 | NUR ---
MEDICATED PT ORDERED FOR PAIN. PT DECLINED NAUSEA MED AT THIS TIME. JASPAL HIGH PT'S PRIMARY NURSE AWARE PT HAS BEEN MEDICATED.
[2018-07-02 15:00] VITALS: BP 133/77
[2018-07-02 15:13] VITALS: BP 129/89
[2018-07-02] MEDS ORDERED: HYDROMORPHONE 1MG/1ML INJ IV PRN (17:45)
[2018-07-02] MEDS: ERTAPENEM 1GM/NS 100ML 100 ML IV SCH (17:47)
--- NOTE | 2018-07-02 17:48 | NUR ---
PT ADMITTED FROM ER THIS AFTERNOON DX OF ACUTE DIVERTICULITIS, PT IS NPO. AA0X4, SKIN IS INTACT, CONTINENT OF B/B AND AMBULATES TO THE RESTROOM. IN BED RELAXING AT THIS MOMENT. CONTINUE ON PAIN MANAGEMENT AND IV ANTIBIOTICS
--- NOTE | 2018-07-02 19:27 | NUR ---
PAIN MEDS GIVEN AT 1620 DILUADID 1MG, UNABLE TO DOCUMENT ORDERED IS D/C AND CHANGED TO EVERY 4 HOURS.
[2018-07-02 19:39] VITALS: BP 142/86
[2018-07-02] MEDS: LEVOFLOXACIN 750MG/D5W 150ML IV SCH (20:45)
[2018-07-03] VITALS (7 sets, daily range): BP systolic 114–135; BP diastolic 59–81
[2018-07-03] MEDS: METRONIDAZOLE 500MG/NS 100ML 100 ML IV SCH ×4 (01:30→17:10)
[2018-07-03] MEDS: HYDROMORPHONE 2MG/ML 2 MG/ML ML IV PRN ×6 (01:31→20:07)
[2018-07-03] MEDS: D5.45%NS/KCL 20MEQ 1,000 ML IV SCH ×2 (03:57→20:07)
[2018-07-03] MEDS: NICOTINE 21 MG/EA PATCH TOP SCH (08:22)
[2018-07-03] MEDS: FAMOTIDINE 20 MG/2 ML VIAL IV SCH ×2 (08:22→16:35)
--- NOTE | 2018-07-03 14:44 | NUR ---
CASE MANAGEMENT INITIAL ASSESSMENT Resource Specialist Teacher to bedside to discuss plan of care with patient/family. CM/SW role and care transitions discussed. Anticipated discharge plan discussed along with duration of care. CM/SW discussed patients right to make decisions in care. CM/SW work hours given. Patient lives: alone Admit/Transfer: thru ED Hospital/ER visits since last admit: none POA/Emergency contact: pt did not give any contact information Current/Previous Home Health: none PCP/Follow-up Care: states he does not see anyone currently but has seen Dr. Ty in the past. CM encouraged pt to follow up with a doctor within 7 days of discharge. pt stated he will follow up with Dr. Ty after discharge. Current/Previous DME: none Medications (referring to index hospitalization or the first time you were in the hospital) a. Were changes made in your medications when you were in the hospital on [date of index hospitalization]? n/a b. Did you understand the changes? n/a c. Were you able to obtain your new medications right away? n/a d. Were you able to take your medications like the doctor wanted you to? n/a e. Did the hospital give you an accurate, easy to understand list of medications when you left? n/a Scale of 1-10 how comfortable does patient feel with disease management in outpatient setting: Other Services: none Employment Status: employed at [employer] Areas of Concerns: diverticulitis Referral Needs: none at this time Education Needs: medical management, diverticulitis IMM/FRANK given and signed (if applicable): n/a Goal for discharge: home CM/SW left business card at the bedside with contact information. Name and number was also written on the patients whiteboard. Patient verbalized understanding of discussion. CM will follow-up with ongoing discharge and transition of care needs.
--- NOTE | 2018-07-03 16:49 | NUR ---
IM Progress note O/N; no events REVIEW OF SYSTEMS: Denies any chest pain or shortness of breath. Denies any leg pain or back pain. Denies any skin rash. Denies any dizziness. PHYSICAL EXAMINATION VITAL SIGNS: Have been reviewed. GENERAL: A tired-appearing man resting in bed. HEENT: Anicteric. CARDIOVASCULAR: Normal S1 and S2. LUNGS: Moderate breath sounds. ABDOMEN: Soft, nondistended. He has tenderness in the left lower quadrant. EXTREMITIES: Trace edema. SKIN: Dry. PSYCHIATRIC: Flat affect. NEUROLOGIC: Alert and oriented x3, moving all extremities. LABS: Reviewed. MEDICATIONS: Reviewed. ASSESSMENT: This is a 47-year-old man. 1. Sepsis. 2. Acute diverticulitis in the sigmoid colon. 3. Hypokalemia. 4. Morbid obesity. 5. Cigarette use. PLAN 1. IV fluids. 2. NPO status. 3. GI and surgical consultations. 4. Replace potassium. 5. Start nicotine patch. 6. Use Pepcid and SCDs for prophylaxis. 7. Disposition: Monitor closely and follow up surgical recommendations. 07/03 check labs; cont care; Gabriele Garrett MD, PhD.
[2018-07-03] MEDS ORDERED: POTASSIUM CHLORIDE 20 MEQ TAB CR PO ONE (17:00)
[2018-07-03] MEDS: ERTAPENEM 1GM/NS 100ML 100 ML IV SCH (17:06)
--- NOTE | 2018-07-03 18:05 | NUR ---
PT IN BED WATCHING TV, CONTINUE ON NPO DIET. IV FLIUDS AND IV ANTIBIOTICS CONTINUES, NO DISTRESS NOTED. PAIN MEDS GIVEN ORDERED. WILL CONTINUE TO MONITOR
[2018-07-03 18:06] LABS: BASOPHILS # (AUTO) 0.1 (0.0-0.1); BASOPHILS % 0.5 % (0.0-1.0); EOSINOPHILS # (AUTO) 0.3 (0.0-0.4); EOSINOPHILS % 2.1 % (0.0-6.0); HEMATOCRIT 41.7 % (38.2-49.6); HEMOGLOBIN 13.8 g/dL (14.0-18.0); LYMPHOCYTES # (AUTO) 2.2 (1.0-3.2); LYMPHOCYTES % 17.4 % (18.0-39.1); MEAN CORPUSCULAR HEMOGLOBIN 29.8 pg (28-32); MEAN CORPUSCULAR HGB CONC 33.1 g/dL (31-35); MEAN CORPUSCULAR VOLUME 90.1 fL (81-99); MONOCYTES % 7.7 % (4.4-11.3); NEUTROPHILS % 71.7 % (38.7-80.0); PLATELET COUNT 242 x10e3/uL (140-360); RED BLOOD COUNT 4.63 x10e6/uL (4.3-5.7); RED CELL DISTRIBUTION WIDTH 13.4 % (11.7-14.4)
[2018-07-03 18:34] LABS: ANION GAP 15.3 mmol/L (8-16); BLOOD UREA NITROGEN 11 mg/dL (7-26); BUN/CREATININE RATIO 14 (6-25); CALCIUM 8.8 mg/dL (8.4-10.2); CARBON DIOXIDE 22 mmol/L (22-29); CHLORIDE 104 mmol/L (98-107); CREATININE, SERUM 0.78 mg/dL (0.72-1.25); EST GLOMERULAR FILTRATION RATE > 60 ML/MIN (60-); GLUCOSE 83 mg/dL (74-118); POTASSIUM 3.3 mmol/L (3.5-5.1); SODIUM 138 mmol/L (136-145)
[2018-07-03] MEDS: ONDANSETRON HCL INJ 2MG/ML 2ML 2 MG/ML VIAL IV PRN (20:08)
--- NOTE | 2018-07-03 20:09 | NUR ---
RECEIVED PT IN BED AOX3 .C/O PAIN AT THE ABD .RESPIRATIONS ARE EVEN AND UNLABORED .SKIN INTACT .CALL LIGHT WITH IN REACH .CONTINUE TO MONITOR
[2018-07-03] MEDS: LEVOFLOXACIN 750MG/D5W 150ML IV SCH (21:45)
[2018-07-04] VITALS (9 sets, daily range): BP systolic 115–134; BP diastolic 72–85
[2018-07-04] MEDS: METRONIDAZOLE 500MG/NS 100ML 100 ML IV SCH ×4 (01:00→18:16)
[2018-07-04] MEDS: HYDROMORPHONE 2MG/ML 2 MG/ML ML IV PRN ×6 (01:28→20:44)
[2018-07-04] MEDS: ONDANSETRON HCL INJ 2MG/ML 2ML 2 MG/ML VIAL IV PRN ×2 (01:28→06:21)
[2018-07-04] MEDS: D5.45%NS/KCL 20MEQ 1,000 ML IV SCH ×2 (03:14→13:12)
[2018-07-04 05:30] LABS: BASOPHILS % 0.3 % (0.0-1.0); EOSINOPHILS # (AUTO) 0.3 (0.0-0.4); EOSINOPHILS % 2.8 % (0.0-6.0); HEMATOCRIT 42.7 % (38.2-49.6); LYMPHOCYTES # (AUTO) 2.3 (1.0-3.2); LYMPHOCYTES % 22.9 % (18.0-39.1); MEAN CORPUSCULAR HEMOGLOBIN 29.6 pg (28-32); MEAN CORPUSCULAR HGB CONC 32.8 g/dL (31-35); MEAN CORPUSCULAR VOLUME 90.3 fL (81-99); MONOCYTES # (AUTO) 0.8 (0.2-0.8); MONOCYTES % 8.3 % (4.4-11.3); NEUTROPHILS # (AUTO) 6.4 (2.1-6.9); NEUTROPHILS % 64.9 % (38.7-80.0); PLATELET COUNT 263 x10e3/uL (140-360); RED BLOOD COUNT 4.73 x10e6/uL (4.3-5.7); RED CELL DISTRIBUTION WIDTH 13.2 % (11.7-14.4)
--- NOTE | 2018-07-04 06:15 | NUR ---
IM Progress note O/N; no events REVIEW OF SYSTEMS: Denies any chest pain or shortness of breath. Denies any leg pain or back pain. Denies any skin rash. Denies any dizziness. PHYSICAL EXAMINATION VITAL SIGNS: Have been reviewed. GENERAL: A tired-appearing man resting in bed. HEENT: Anicteric. CARDIOVASCULAR: Normal S1 and S2. LUNGS: Moderate breath sounds. ABDOMEN: Soft, nondistended. He has tenderness in the left lower quadrant. EXTREMITIES: Trace edema. SKIN: Dry. PSYCHIATRIC: Flat affect. NEUROLOGIC: Alert and oriented x3, moving all extremities. LABS: Reviewed. MEDICATIONS: Reviewed. ASSESSMENT: This is a 47-year-old man. 1. Sepsis. 2. Acute diverticulitis in the sigmoid colon. 3. Hypokalemia. 4. Morbid obesity. 5. Cigarette use. PLAN 1. IV fluids. 2. NPO status. 3. GI and surgical consultations. 4. Replace potassium. 5. Start nicotine patch. 6. Use Pepcid and SCDs for prophylaxis. 7. Disposition: Monitor closely and follow up surgical recommendations. 07/03 check labs; cont care; 2/8 leukocytosis resolved; check lytes; will need colonoscopy in 6-8 weeks. Gabriele Garrett MD, PhD.
--- NOTE | 2018-07-04 06:43 | NUR ---
PT RESTING .C/O PAIN Q3HRS AND GIVEN ORDERED PAIN MEDICATION ..CALL BROOKS WITH IN REACH .CONTINUE TO MONITOR
--- NOTE | 2018-07-04 07:00 | NUR ---
SHIFT REPORT DONE WHILE ROUNDING ON PT WITH NIGHT RN. PT DENIES NEEDS AT THIS TIME.
--- NOTE | 2018-07-04 07:12 | NUR ---
REPORT GIVEN TO THE ONCOMING NURSE.
[2018-07-04 07:39] LABS: MAGNESIUM 2.6 MG/DL (1.3-2.1); PHOSPHORUS 3.4 MG/DL (2.3-4.7); POTASSIUM 3.6 mmol/L (3.5-5.1)
[2018-07-04] MEDS: FAMOTIDINE 20 MG/2 ML VIAL IV SCH ×2 (08:46→17:25)
[2018-07-04] MEDS: NICOTINE 21 MG/EA PATCH TOP SCH (08:46)
[2018-07-04] MEDS: ERTAPENEM 1GM/NS 100ML 100 ML IV SCH (17:25)
[2018-07-04] MEDS: LEVOFLOXACIN 750MG/D5W 150ML 150 ML IV SCH (20:49)
[2018-07-05] MEDS: METRONIDAZOLE 500MG/NS 100ML 100 ML IV SCH ×4 (00:35→18:17)
[2018-07-05] MEDS: HYDROMORPHONE 2MG/ML 2 MG/ML ML IV PRN ×8 (01:00→18:55)
--- NOTE | 2018-07-05 01:00 | NUR ---
IV TO RIGHT WRIST UNABLE TO FLUSH,NEW IV STARTED TO LEFT FA 20G.
[2018-07-05] MEDS: D5.45%NS/KCL 20MEQ 1,000 ML IV SCH ×2 (05:55→18:21)
[2018-07-05 06:31] VITALS: BP 107/62
--- NOTE | 2018-07-05 07:00 | NUR ---
SHIFT REPORT DONE WHILE ROUNDING ON PT WITH NIGHT RN. PT DENIES NEEDS AT THIS TIME.
--- NOTE | 2018-07-05 07:07 | NUR ---
REPORT GIVEN TO ONCOMING NURSE,WALKING ROUNDS MADE.PT RESTING IN BED WITH NO S/S OF DISTRESS.
[2018-07-05 09:00] VITALS: BP 121/75
[2018-07-05 09:06] LABS: BASOPHILS % 0.3 % (0.0-1.0); EOSINOPHILS # (AUTO) 0.3 (0.0-0.4); EOSINOPHILS % 3.6 % (0.0-6.0); HEMATOCRIT 43.3 % (38.2-49.6); HEMOGLOBIN 14.1 g/dL (14.0-18.0); LYMPHOCYTES # (AUTO) 2.4 (1.0-3.2); LYMPHOCYTES % 25.9 % (18.0-39.1); MEAN CORPUSCULAR HEMOGLOBIN 29.1 pg (28-32); MEAN CORPUSCULAR HGB CONC 32.6 g/dL (31-35); MEAN CORPUSCULAR VOLUME 89.5 fL (81-99); MONOCYTES # (AUTO) 0.8 (0.2-0.8); MONOCYTES % 8.2 % (4.4-11.3); NEUTROPHILS # (AUTO) 5.8 (2.1-6.9); NEUTROPHILS % 61.6 % (38.7-80.0); PLATELET COUNT 306 x10e3/uL (140-360); RED BLOOD COUNT 4.84 x10e6/uL (4.3-5.7); RED CELL DISTRIBUTION WIDTH 13.1 % (11.7-14.4)
[2018-07-05] MEDS: NICOTINE 21 MG/EA PATCH TOP SCH (09:13)
[2018-07-05] MEDS: FAMOTIDINE 20 MG/2 ML VIAL IV SCH ×2 (09:13→17:54)
[2018-07-05 13:12] VITALS: BP 133/82
[2018-07-05 16:37] LABS: MAGNESIUM 2.2 MG/DL (1.3-2.1); POTASSIUM 3.8 mmol/L (3.5-5.1)
[2018-07-05 17:35] VITALS: BP 140/77
[2018-07-05] MEDS: ERTAPENEM 1GM/NS 100ML 100 ML IV SCH (17:54)
--- NOTE | 2018-07-05 19:10 | NUR ---
RECEIVED PT RESTING IN BED.NO S/S OF DISTRESS NOTED.RESPIRATIONS EVEN/NON LABORED.ENCOURAGED PT TO WALK,PT VERBALIZED UNDERSTANDING.PT DENIES ANY NEEDS AT THIS TIME.INSTRUCTED PT TO CALL FOR ASSISTANCE NEEDED.CALL LIGHT WITHIN EASY REACH.
[2018-07-05 20:37] VITALS: BP 140/77
[2018-07-05] MEDS: LEVOFLOXACIN 750MG/D5W 150ML 150 ML IV SCH (20:37)
[2018-07-05 21:24] VITALS: BP 133/88
[2018-07-06] VITALS (7 sets, daily range): BP systolic 117–142; BP diastolic 72–89
[2018-07-06] MEDS: METRONIDAZOLE 500MG/NS 100ML 100 ML IV SCH ×4 (00:38→18:07)
--- NOTE | 2018-07-06 07:00 | NUR ---
SHIFT REPORT DONE WHILE ROUNDING ON PT WITH NIGHT RN. PT DENIES NEEDS AT THIS TIME.
--- NOTE | 2018-07-06 07:04 | NUR ---
REPORT GIVEN TO ONCOMING NURSE.WALKING ROUNDS MADE.PT RESTING IN BED WITH NO S/S OF DISTRESS.
[2018-07-06] MEDS: NICOTINE 21 MG/EA PATCH TOP SCH (08:56)
[2018-07-06] MEDS: D5.45%NS/KCL 20MEQ 1,000 ML IV SCH (08:56)
[2018-07-06] MEDS: FAMOTIDINE 20 MG/2 ML VIAL IV SCH ×2 (08:56→17:39)
--- NOTE | 2018-07-06 13:19 | NUR ---
IM Progress note O/N; no events REVIEW OF SYSTEMS: Denies any chest pain or shortness of breath. Denies any leg pain or back pain. Denies any skin rash. Denies any dizziness. PHYSICAL EXAMINATION VITAL SIGNS: Have been reviewed. GENERAL: A tired-appearing man resting in bed. HEENT: Anicteric. CARDIOVASCULAR: Normal S1 and S2. LUNGS: Moderate breath sounds. ABDOMEN: Soft, nondistended. He has tenderness in the left lower quadrant. EXTREMITIES: Trace edema. SKIN: Dry. PSYCHIATRIC: Flat affect. NEUROLOGIC: Alert and oriented x3, moving all extremities. LABS: Reviewed. MEDICATIONS: Reviewed. ASSESSMENT: This is a 47-year-old man. 1. Sepsis. 2. Acute diverticulitis in the sigmoid colon. 3. Hypokalemia. 4. Morbid obesity. 5. Cigarette use. PLAN 1. IV fluids. 2. NPO status. 3. GI and surgical consultations. 4. Replace potassium. 5. Start nicotine patch. 6. Use Pepcid and SCDs for prophylaxis. 7. Disposition: Monitor closely and follow up surgical recommendations. 07/03 check labs; cont care; 07/04 leukocytosis resolved; check lytes; will need colonoscopy in 6-8 weeks. 07/05 start CLD; ambulate; check lytes; 07/06 advance diet. Gabriele Garrett MD, PhD.
[2018-07-06] MEDS: ERTAPENEM 1GM/NS 100ML 100 ML IV SCH (17:39)
--- NOTE | 2018-07-06 19:39 | NUR ---
PT IS RESTING IN BED. NO RESPIRATORY DISTRESS NOTED. BED IN THE LOWEST POSITION, LOCKED, AND CALL LIGHT WITHIN REACH. WILL CONTINUE TO MONITOR.
[2018-07-06] MEDS: LEVOFLOXACIN 750MG/D5W 150ML 150 ML IV SCH (20:32)
[2018-07-07] MEDS: METRONIDAZOLE 500MG/NS 100ML 100 ML IV SCH ×3 (00:24→12:00)
[2018-07-07] MEDS: D5.45%NS/KCL 20MEQ 1,000 ML IV SCH (04:23)
[2018-07-07 06:37] VITALS: BP 92/53
--- NOTE | 2018-07-07 07:00 | NUR ---
Received patient mid fowlers position, side rails upx2, call light within reach. AAOX4 to time, person,place, situation. Respirations even and unlabored. Denies any pain. Instructed to use call light for assistance. Voiced understanding.
[2018-07-07 08:15] VITALS: BP 116/58
--- NOTE | 2018-07-07 08:55 | NUR ---
DIscharge Summary; Principal Dx and Facilty course: ASSESSMENT: This is a 47-year-old man. 1. Sepsis. 2. Acute diverticulitis in the sigmoid colon. 3. Hypokalemia. 4. Morbid obesity. 5. Cigarette use. PLAN 1. IV fluids. 2. NPO status. 3. GI and surgical consultations. 4. Replace potassium. 5. Start nicotine patch. 6. Use Pepcid and SCDs for prophylaxis. 7. Disposition: Monitor closely and follow up surgical recommendations. 07/03 check labs; cont care; 07/04 leukocytosis resolved; check lytes; will need colonoscopy in 6-8 weeks. 07/05 start CLD; ambulate; check lytes; 07/06 advance diet. 07/07 d/c planning; will need colonoscopy in 6-8 weeks d/c home f/u PCP 1 week and 6 weeks for colonoscopy Stressed weight loss critical d/c condition: stable d/c >35mins. Gabriele Garrett MD, PhD.
[2018-07-07] MEDS: NICOTINE 21 MG/EA PATCH TOP SCH (09:09)
[2018-07-07] MEDS: FAMOTIDINE 20 MG/2 ML VIAL IV SCH (09:09)
[2018-07-07 09:19] VITALS: BP 116/58
[2018-07-07 12:42] VITALS: BP 125/95
[2018-07-07] MEDS ORDERED: NICODERM CQ1 EAC2 TOP (14:09)
[2018-07-07] MEDS ORDERED: MIRALAX17 GM PO (14:09)
[2018-07-07] MEDS ORDERED: PEPCID20 MG PO (14:09)
[2018-07-07] MEDS ORDERED: FLAGYL500 MG PO (14:09)
[2018-07-07] MEDS ORDERED: ZOFRAN4 MG PO (14:10)
--- NOTE | 2018-07-07 15:01 | NUR ---
aware of discharge orders. Per "patient to follow up 1 week"
--- NOTE | 2018-07-07 16:06 | NUR ---
left hand IV discontinued. No signs of infiltration noted. 2x2 gauze and tape placed.Accompanied by family member. Accompanied patient to personal car. Refused wheelchair. AAOX4 to time, person, place, situation. Respirations even and unlabored. RX, discharge instructions and all personal belongings taken with patient.
[2018-07-07 16:17] VITALS: BP 131/81
== END 2018-07-07 16:23 | disposition home or self-care (01) | DRG 872 ==
LOC: ER 15:55 → ERHOLD 21:18 → MED/SURG2 07-02 13:48
PROVIDERS: ADMIT Internal Medicine; ATTEND Internal Medicine
DX: A41.9 Sepsis, unspecified organism (principal); Z68.43 Body mass index [BMI] 50.0-59.9, adult; K57.20 Diverticulitis of large intestine with perforation and abscess without bleeding; E87.6 Hypokalemia; F17.210 Nicotine dependence, cigarettes, uncomplicated; E66.01 Morbid (severe) obesity due to excess calories; I10 Essential (primary) hypertension
CPT/HCPCS: 36415; 74177; 80048; 80053; 80061; 81001; 83036; 83690; 83735; 84100; 84132; 85025; 96361; 96374; 96375; 99284; J0500; J1885; J2405; J3480; J7030; J7050; Q9967